=== PATIENT | female | born 1970 | race Caucasian/White ===

== ENCOUNTER 2017-08-12 15:26 | Emergency (ER) | payer OTHER, SELFPAY ==
[2017-08-12] MEDS ORDERED: Ondansetron HCl/PF 4 MG/2 ML Vial ONE (16:36)
[2017-08-12] MEDS ORDERED: Ketorolac Tromethamine 30 MG/ML VIAL ONE (16:36)
[2017-08-12 16:44] LABS: #Basophils 0.1 thou/uL (0.0-0.2); #Eosinphils 0.1 thou/uL (0.0-0.7); #Lymphocytes 1.5 thou/uL (1.20-3.40); #Monocytes 0.7 thou/uL (0.11-0.59); #Neutrophils 5.2 thou/uL (1.40-6.50); %Basophils 0.7 % (0.0-1.0); %Eosinophils 1.6 % (0.0-10.0); %Lymphocytes 20.1 % (21.0-51.0); Hematocrit 40.4 % (36.0-47.0); Mean Platelet Volume 7.5 fL (7.4-10.4); Red Blood Cell (RBC) Count 4.42 mill/uL (4.20-5.40); White Blood Cell (WBC) Count 7.5 thou/uL (4.8-10.8)
[2017-08-12 17:06] LABS: ALT (SGPT) 39 U/L (8-55); AST (SGOT) 42 U/L (5-34); Alkaline Phosphatase 98 U/L (40-150); Anion Gap 15 mmol/L (10-20); BUN (Urea Nitrogen) 10 mg/dL (7.0-18.7); Bilirubin, Total 0.4 mg/dL (0.2-1.2); Calc. Creatinine Clearance 0 mL/min (70-130); Carbon Dioxide 21 mmol/L (22-29); Chloride 108 mmol/L (98-107); Estimated GFR-MDRD 85; Globulin 2.9 g/dL (2.4-3.5); Protein, Total 6.9 g/dL (6.0-8.3)
== END 2017-08-12 21:04 | disposition home or self-care (01) ==
LOC: ERS 15:26
DX: G89.29 Other chronic pain (principal); M54.5 Low back pain; I10 Essential (primary) hypertension; J45.909 Unspecified asthma, uncomplicated; F17.210 Nicotine dependence, cigarettes, uncomplicated; Z79.899 Other long term (current) drug therapy
CPT/HCPCS: 80053; 84703; 85025; 85652; 86140; 96361; 96374; 96375; J1885; J2270; J2405

== ENCOUNTER 2017-10-26 13:24 | Emergency (ER) | payer BC, SELFPAY ==
[2017-10-26] MEDS ORDERED: Morphine 4 MG/ML VIAL ONE (14:30)
[2017-10-26] MEDS ORDERED: Morphine 2 mg/2ml in 0.9% NaCl PF SYRINGE ONE (14:31)
[2017-10-26] MEDS ORDERED: Ketorolac Tromethamine 30 MG/ML VIAL ONE (14:31)
[2017-10-26 14:49] LABS: #Eosinphils 0.2 thou/uL (0.0-0.7); #Lymphocytes 1.8 thou/uL (1.20-3.40); #Monocytes 0.4 thou/uL (0.11-0.59); #Neutrophils 4.9 thou/uL (1.40-6.50); %Basophils 0.5 % (0.0-1.0); %Eosinophils 2.3 % (0.0-10.0); %Lymphocytes 24.6 % (21.0-51.0); %Monocytes 5.7 % (0.0-10.0); Hematocrit 45.2 % (36.0-47.0); Mean Platelet Volume 7.8 fL (7.4-10.4); Red Blood Cell (RBC) Count 4.91 mill/uL (4.20-5.40); White Blood Cell (WBC) Count 7.2 thou/uL (4.8-10.8)
[2017-10-26 14:59] LABS: ALT (SGPT) 69 U/L (8-55); AST (SGOT) 43 U/L (5-34); Alkaline Phosphatase 105 U/L (40-150); Anion Gap 13 mmol/L (10-20); BUN (Urea Nitrogen) 11 mg/dL (7.0-18.7); Bilirubin, Total 0.3 mg/dL (0.2-1.2); CK (CPK) 262 U/L (29-168); Calc. Creatinine Clearance 0 mL/min (70-130); Calcium 9.3 mg/dL (7.8-10.44); Carbon Dioxide 21 mmol/L (22-29); Chloride 108 mmol/L (98-107); Estimated GFR-MDRD 88; Globulin 2.8 g/dL (2.4-3.5); Protein, Total 6.8 g/dL (6.0-8.3)
== END 2017-10-26 15:51 | disposition home or self-care (01) ==
LOC: ERS 13:24
DX: M54.2 Cervicalgia (principal); M54.5 Low back pain; I10 Essential (primary) hypertension; J45.909 Unspecified asthma, uncomplicated; E27.1 Primary adrenocortical insufficiency; F41.9 Anxiety disorder, unspecified; F17.210 Nicotine dependence, cigarettes, uncomplicated; Z79.899 Other long term (current) drug therapy
CPT/HCPCS: 80053; 82533; 82550; 85025; 96374; 96375; 99406; J1885; J2270

== ENCOUNTER 2017-12-27 14:29 | Emergency (ER) | payer BC ==
[2017-12-27 15:30] LABS: #Basophils 0.1 thou/uL (0.0-0.2); #Eosinphils 0.1 thou/uL (0.0-0.7); #Lymphocytes 1.9 thou/uL (1.20-3.40); #Monocytes 0.4 thou/uL (0.11-0.59); %Basophils 1.1 % (0.0-1.0); %Lymphocytes 24.7 % (21.0-51.0); %Monocytes 5.7 % (0.0-10.0); %Neutrophils 66.5 % (42.0-75.0); Hemoglobin 15.3 g/dL (12.0-16.0); Mean Corpuscular HGB CONC 32.7 g/dL (32.0-36.0); Mean Corpuscular Hemoglobin 30.3 pg (27.0-31.0); Mean Corpuscular Volume 92.9 fl (81.0-99.0); Mean Platelet Volume 7.7 fL (7.4-10.4); Platelet Count 219 thou/uL (130-400); RBC Distribution Width 12.7 % (11.5-14.5); Red Blood Cell (RBC) Count 5.03 mill/uL (4.20-5.40); White Blood Cell (WBC) Count 7.5 thou/uL (4.8-10.8)
[2017-12-27 15:52] LABS: ALT (SGPT) 35 U/L (8-55); AST (SGOT) 24 U/L (5-34); Albumin 4.1 g/dL (3.5-5.0); Alkaline Phosphatase 123 U/L (40-150); Anion Gap 11 mmol/L (10-20); BUN (Urea Nitrogen) 9 mg/dL (7.0-18.7); Bilirubin, Total 0.4 mg/dL (0.2-1.2); Calc. Creatinine Clearance 0 mL/min (70-130); Calcium 8.8 mg/dL (7.8-10.44); Carbon Dioxide 24 mmol/L (22-29); Chloride 105 mmol/L (98-107); Estimated GFR-MDRD 86; Globulin 2.8 g/dL (2.4-3.5); Glucose 93 mg/dL (70-105); Potassium 3.8 mmol/L (3.5-5.1); Protein, Total 6.9 g/dL (6.0-8.3); Sodium 136 mmol/L (136-145)
[2017-12-27 16:11] LABS: Bilirubin Negative (Negative); Blood, Urine Negative (Negative); Clarity CLEAR (Clear); Glucose, Urine (Dipstick) Negative (Negative); Leukocyte Negative (Negative); Nitrite Negative (Negative); Protein, Urine (Dipstick) Negative (Neg-Trace); Specific Gravity, Urine 1.023 (1.002-1.036); Urobilinogen 0.2 mg/dL (0.2-1.0)
[2017-12-27 16:13] LABS: Pregnancy Test - Urine (BHCG) Negative (Negative); Pregu Control Background? CLEAR/WHITE (CLR/WHITE); Pregu Control Bar Appear? YES (CONTROL BAR); Specific Gravity 1.023 (1.002-1.036)
[2017-12-27 16:20] LABS: Amphetamine Not Detected (NotDetected); Barbiturates Screen Not Detected (NotDetected); Benzodiazepine Screen Detected (NotDetected); Cocaine Metabolite Screen Not Detected (NotDetected); Medtox Control Line Valid? VALID (VALID); Medtox Reader # READER 4; Methadone Not Detected (NotDetected); Methamphetamine Not Detected (NotDetected); Opiate Screen Not Detected (NotDetected); Oxycodone Screen Not Detected (NotDetected); Phencyclidine (PCP) Not Detected (NotDetected); THC/Cannabinoid Screen Not Detected (NotDetected); Tricyclic Screen Not Detected (NotDetected)
[2017-12-27] MEDS ORDERED: Acetaminophen/Codeine 30-300mg Tablet ONE (16:54)
[2017-12-27] MEDS ORDERED: Ondansetron ODT 8 MG TAB ONE (16:55)
== END 2017-12-27 17:33 | disposition home or self-care (01) ==
LOC: ERS 14:29
DX: B34.9 Viral infection, unspecified (principal); E27.1 Primary adrenocortical insufficiency; I10 Essential (primary) hypertension; J45.909 Unspecified asthma, uncomplicated; F41.9 Anxiety disorder, unspecified; F17.210 Nicotine dependence, cigarettes, uncomplicated
CPT/HCPCS: 36415; 80053; 80306; 81003; 81025; 82533; 84146; 85025; 99284

== ENCOUNTER 2018-04-06 09:01 | Emergency (ER) | payer BC ==
[~2018-04-06 09:01] MED LIST: ISOVUE-370 76%-LOCM 1 ML ONE; Iopamidol 370 76% 50 ML VIAL FS ONE
[2018-04-06] MEDS ORDERED: Morphine 4 MG/ML VIAL ONE ×2 (10:07→11:37)
[2018-04-06] MEDS ORDERED: Ondansetron ODT 4 MG TAB ONE (10:07)
[2018-04-06 10:25] LABS: #Eosinphils 0.4 thou/uL (0.0-0.7); #Lymphocytes 1.5 thou/uL (1.20-3.40); #Monocytes 0.6 thou/uL (0.11-0.59); #Neutrophils 5.8 thou/uL (1.40-6.50); %Basophils 0.1 % (0.0-1.0); %Eosinophils 4.6 % (0.0-10.0); %Lymphocytes 17.6 % (21.0-51.0); %Monocytes 7.2 % (0.0-10.0); %Neutrophils 70.5 % (42.0-75.0); Hemoglobin 12.8 g/dL (12.0-16.0); Mean Corpuscular HGB CONC 33.7 g/dL (32.0-36.0); Mean Corpuscular Hemoglobin 30.9 pg (27.0-31.0); Mean Corpuscular Volume 91.4 fl (81.0-99.0); Mean Platelet Volume 7.2 fL (7.4-10.4); Platelet Count 315 thou/uL (130-400); RBC Distribution Width 12.1 % (11.5-14.5); Red Blood Cell (RBC) Count 4.15 mill/uL (4.20-5.40); White Blood Cell (WBC) Count 8.3 thou/uL (4.8-10.8)
[2018-04-06 10:32] LABS: Bilirubin Negative (Negative); Blood, Urine Moderate (Negative); Clarity CLEAR (Clear); Glucose, Urine (Dipstick) Negative (Negative); Leukocyte Small (Negative); Nitrite Negative (Negative); Protein, Urine (Dipstick) Negative (Neg-Trace); Specific Gravity, Urine 1.022 (1.002-1.036); Urobilinogen 0.2 mg/dL (0.2-1.0); pH, Urine 5.5 (5.0-9.0)
[2018-04-06 10:35] LABS: Bacteria/HPF None Seen HPF (None Seen); Hyaline Casts/LPF 0-3 HYALINE CAST LPF (0-3 Hyaline); Pathc Cast-AUWi Flag 0.43 (0-2.49); Squamous Epithelial 0-3 HPF (0-3)
[2018-04-06 10:52] LABS: ALT (SGPT) 36 U/L (8-55); AST (SGOT) 19 U/L (5-34); Albumin 3.7 g/dL (3.5-5.0); Alkaline Phosphatase 111 U/L (40-150); Anion Gap 12 mmol/L (10-20); BUN (Urea Nitrogen) 13 mg/dL (7.0-18.7); Bilirubin, Total 0.2 mg/dL (0.2-1.2); Calc. Creatinine Clearance 0 mL/min (70-130); Calcium 9.1 mg/dL (7.8-10.44); Carbon Dioxide 23 mmol/L (22-29); Chloride 105 mmol/L (98-107); Estimated GFR-MDRD 88; Globulin 3.7 g/dL (2.4-3.5); Glucose 102 mg/dL (70-105); Lipase 25 U/L (8-78); Potassium 4.3 mmol/L (3.5-5.1); Protein, Total 7.4 g/dL (6.0-8.3); Sodium 136 mmol/L (136-145)
--- NOTE | 2018-04-06 12:36 | CT ---
CONTRAST ENHANCED CT IMAGES OF THE ABDOMEN AND PELVIS: History: Patient with abdominal pain. Comparison: 06-01-17 FINDINGS: IV and oral contrast was given. CT images demonstrate the lung bases to be unremarkable. No evidence of free intraperitoneal air seen . The liver and spleen are unremarkable. The gallbladder has been surgically removed. The pancreas is u nremarkable. Right adrenal gland unremarkable. The left adrenal gland remains enlarged, most compatib le with a left adrenal lesion compatible with likely adenoma, not significantly changed since the pre vious exam. The kidneys are unremarkable with no evidence of hydronephrosis or masses. The abdominal aorta contai ns some small areas of calcifications. Minimal periaortic lymph adenopathy is seen. The small bowel loops are unremarkable. A normal appendix is seen. There is some inflammatory change since in the pelvis compatible with edna ent's recent surgery. The urinary bladder is abnormally thickened concerning for cystitis. No significant amount of gas is seen within it. The colon and small bowel are unremarkable. No definite evidence of obvious pelvic abscess is seen. IMPRESSION: 1. Post-surgical changes seen in the pelvis. 2. Abnormal thickening of the urinary bladder, compatible with cystitis. 3. Findings called to Dr. Winslow at 12:14 p.m. on 04-06-18. POS: [facility]
[2018-04-06] MEDS ORDERED: Sodium Chloride 0.9% 100 ML ONE (13:01)
[2018-04-06] MEDS ORDERED: cefTRIAXone\\ROCEPHIN 1 GM VIAL ONE (13:01)
[2018-04-06] MEDS ORDERED: HYDROcodone/Acetaminophen 5/325 mg Tablet ONE (13:57)
== END 2018-04-06 14:01 | disposition home or self-care (01) ==
LOC: ERS 09:01
DX: N39.0 Urinary tract infection, site not specified (principal); E27.1 Primary adrenocortical insufficiency; I10 Essential (primary) hypertension; J45.909 Unspecified asthma, uncomplicated; F41.9 Anxiety disorder, unspecified; F17.210 Nicotine dependence, cigarettes, uncomplicated
CPT/HCPCS: 74177; 80053; 81003; 81015; 83605; 83690; 85025; 87086; 96361; 96365; 96375; 96376; J0696; J2270; J7050; Q0162

== ENCOUNTER 2018-06-22 16:24 | Emergency (ER) | payer BC ==
[2018-06-22 17:04] LABS: #Eosinphils 0.2 thou/uL (0.0-0.7); #Lymphocytes 2.5 thou/uL (1.20-3.40); #Monocytes 0.4 thou/uL (0.11-0.59); #Neutrophils 3.7 thou/uL (1.40-6.50); %Basophils 0.2 % (0.0-1.0); %Eosinophils 2.4 % (0.0-10.0); %Lymphocytes 37.1 % (21.0-51.0); %Monocytes 5.5 % (0.0-10.0); %Neutrophils 54.8 % (42.0-75.0); Hemoglobin 14.5 g/dL (12.0-16.0); Mean Corpuscular Hemoglobin 31.2 pg (27.0-31.0); Mean Corpuscular Volume 89.2 fL (78.0-98.0); Mean Platelet Volume 7.5 fL (7.4-10.4); Platelet Count 195 thou/uL (130-400); RBC Distribution Width 12.5 % (11.5-14.5); Red Blood Cell (RBC) Count 4.65 mill/uL (4.20-5.40); White Blood Cell (WBC) Count 6.8 thou/uL (4.8-10.8)
[2018-06-22 17:29] LABS: ALT (SGPT) 47 U/L (8-55); AST (SGOT) 34 U/L (5-34); Albumin 4.3 g/dL (3.5-5.0); Alkaline Phosphatase 110 U/L (40-150); Anion Gap 16 mmol/L (10-20); BUN (Urea Nitrogen) 15 mg/dL (7.0-18.7); Bilirubin, Total 0.2 mg/dL (0.2-1.2); Calc. Creatinine Clearance 0 mL/min (70-130); Calcium 9.2 mg/dL (7.8-10.44); Carbon Dioxide 20 mmol/L (22-29); Chloride 108 mmol/L (98-107); Estimated GFR-MDRD 71; Globulin 2.7 g/dL (2.4-3.5); Glucose 153 mg/dL (70-105); Potassium 3.6 mmol/L (3.5-5.1); Sodium 140 mmol/L (136-145)
[2018-06-22 17:37] LABS: Acetaminophen Less than 6.0 mcg/mL (10.0-30.0); Alcohol Less than 10 mg/dL (Less than 10); Salicylate Less than 8.0 mg/dL (15.0-30.0)
[2018-06-22 17:37] LABS: Bilirubin Negative (Negative); Blood, Urine Negative (Negative); Clarity CLEAR (Clear); Glucose, Urine (Dipstick) Negative (Negative); Leukocyte Negative (Negative); Nitrite Negative (Negative); Protein, Urine (Dipstick) Negative (Neg-Trace); Specific Gravity, Urine 1.025 (1.002-1.036); Urobilinogen 0.2 mg/dL (0.2-1.0)
[2018-06-22 17:40] LABS: Pregnancy Test - Urine (BHCG) Negative (Negative); Pregu Control Background? CLEAR/WHITE (CLR/WHITE); Pregu Control Bar Appear? YES (CONTROL BAR); Specific Gravity 1.025 (1.002-1.036)
[2018-06-22 17:42] LABS: CKMB 4.4 ng/mL (0-6.6); Troponin I Less than 0.010 ng/mL (< 0.028)
[2018-06-22 17:51] LABS: Amphetamine Not Detected (NotDetected); Barbiturates Screen Detected (NotDetected); Benzodiazepine Screen Detected (NotDetected); Cocaine Metabolite Screen Not Detected (NotDetected); Medtox Reader # READER 1; Methadone Not Detected (NotDetected); Methamphetamine Not Detected (NotDetected); Opiate Screen Not Detected (NotDetected); Phencyclidine (PCP) Not Detected (NotDetected); THC/Cannabinoid Screen Not Detected (NotDetected); Tricyclic Screen Not Detected (NotDetected)
[2018-06-22 17:52] LABS: Medtox Control Line Valid? VALID (VALID); Oxycodone Screen Not Detected (NotDetected)
--- NOTE | 2018-06-22 18:27 | RAD ---
CHEST 1 VIEW: Date: 06/22/18 HISTORY: Seizure. Dyspnea. COMPARISON: 02/04/17. FINDINGS: Cardiac silhouette is magnified by projection. Pulmonary vasculature upper limits of normal. Mediasti num midline. No lobar consolidation or evidence of pneumothorax. cafeteria monitor leads overlie the ch est. IMPRESSION: No active cardiopulmonary abnormalities are demonstrated. POS: [facility]
--- NOTE | 2018-06-22 18:45 | CT ---
CT OF THE BRAIN WITHOUT CONTRAST: Date: 06/22/18 INDICATION: History of seizure. COMPARISON: Prior exam dated 01/11/16. FINDINGS: No acute infarct, hemorrhage, or hydrocephalus is present. Septum pellucidum and third ventricle are midline. The skull and extracranial soft tissues appear within normal limits. IMPRESSION: No acute intracranial abnormality demonstrated. POS: [facility]
== END 2018-06-22 19:15 | disposition home or self-care (01) ==
LOC: ERS 16:24
DX: R56.9 Unspecified convulsions (principal); M79.1 Myalgia; E27.1 Primary adrenocortical insufficiency; K22.0 Achalasia of cardia; G61.0 Guillain-Barre syndrome; F41.9 Anxiety disorder, unspecified; I10 Essential (primary) hypertension; F17.210 Nicotine dependence, cigarettes, uncomplicated; J45.909 Unspecified asthma, uncomplicated; Z79.899 Other long term (current) drug therapy
CPT/HCPCS: 36415; 70450; 71045; 80053; 80306; 80307; 81003; 81025; 82553; 84146; 84443; 84484; 85025; 93005; 96360; 96374

== ENCOUNTER 2018-10-18 15:13 | Emergency (ER) | payer BC ==
--- NOTE | 2018-10-18 15:55 | RAD ---
CHEST TWO VIEWS: INDICATIONS: Cough. FINDINGS: No consolidation, pleural effusion, or pneumothorax is evident. Heart size is normal. No acute osseous abnormality is evident. IMPRESSION: No acute cardiopulmonary abnormalities. POS: [facility]
[2018-10-18] MEDS ORDERED: Acetaminophen 500 MG TAB ONE (16:57)
[2018-10-18] MEDS ORDERED: predniSONE 20 MG TAB ONE (17:06)
[2018-10-18] MEDS ORDERED: Doxycycline 100 MG CAP PO SCH (17:15)
[2018-10-18 17:53] LABS: #Basophils 0.1 thou/uL (0.0-0.2); #Eosinphils 0.1 thou/uL (0.0-0.7); #Monocytes 0.5 thou/uL (0.11-0.59); #Neutrophils 4.4 thou/uL (1.40-6.50); %Eosinophils 1.7 % (0.0-10.0); %Lymphocytes 36.7 % (21.0-51.0); %Neutrophils 54.6 % (42.0-75.0); Hemoglobin 15.2 g/dL (12.0-16.0); Mean Corpuscular HGB CONC 33.9 g/dL (32.0-36.0); Mean Corpuscular Hemoglobin 29.7 pg (27.0-31.0); Mean Corpuscular Volume 87.8 fL (78.0-98.0); Mean Platelet Volume 7.8 fL (7.4-10.4); Platelet Count 203 thou/uL (130-400); RBC Distribution Width 12.2 % (11.5-14.5); Red Blood Cell (RBC) Count 5.12 mill/uL (4.20-5.40); White Blood Cell (WBC) Count 8.1 thou/uL (4.8-10.8)
[2018-10-18 18:03] LABS: ALT (SGPT) 53 U/L (8-55); AST (SGOT) 44 U/L (5-34); Albumin 4.3 g/dL (3.5-5.0); Alkaline Phosphatase 125 U/L (40-150); Anion Gap 17 mmol/L (10-20); BUN (Urea Nitrogen) 13 mg/dL (7.0-18.7); Bilirubin, Total 0.3 mg/dL (0.2-1.2); Calc. Creatinine Clearance 0 mL/min (70-130); Calcium 9.6 mg/dL (7.8-10.44); Carbon Dioxide 19 mmol/L (22-29); Chloride 108 mmol/L (98-107); Estimated GFR-MDRD 72; Globulin 3.3 g/dL (2.4-3.5); Glucose 106 mg/dL (70-105); Protein, Total 7.6 g/dL (6.0-8.3); Sodium 140 mmol/L (136-145)
[2018-10-18 18:07] LABS: Troponin I Less than 0.010 ng/mL (< 0.028)
[2018-10-18] MEDS ORDERED: Ketorolac Tromethamine 30 MG/ML VIAL ONE (18:59)
== END 2018-10-18 19:50 | disposition home or self-care (01) ==
LOC: ERS 15:13
DX: J44.1 Chronic obstructive pulmonary disease with (acute) exacerbation (principal); E27.1 Primary adrenocortical insufficiency; I10 Essential (primary) hypertension; J45.909 Unspecified asthma, uncomplicated; F41.9 Anxiety disorder, unspecified; F17.210 Nicotine dependence, cigarettes, uncomplicated; Z79.899 Other long term (current) drug therapy
CPT/HCPCS: 36415; 71046; 80053; 84484; 85025; 85379; 93005; 96360; 96361; J1885; J7506; J7620

== ENCOUNTER 2018-12-28 16:31 | Observation (INO) | payer BC ==
[~2018-12-28 16:31] MED LIST changes: -Iopamidol 370 76% 50 ML VIAL FS ONE
[2018-12-28 17:25] LABS: #Eosinphils 0.2 thou/uL (0.0-0.7); #Monocytes 0.4 thou/uL (0.11-0.59); #Neutrophils 3.7 thou/uL (1.40-6.50); %Basophils 0.2 % (0.0-1.0); %Eosinophils 2.9 % (0.0-10.0); %Lymphocytes 32.2 % (21.0-51.0); %Monocytes 5.7 % (0.0-10.0); Hemoglobin 15.2 g/dL (12.0-16.0); Mean Corpuscular HGB CONC 33.1 g/dL (32.0-36.0); Mean Corpuscular Hemoglobin 30.1 pg (27.0-31.0); Mean Corpuscular Volume 90.8 fL (78.0-98.0); Mean Platelet Volume 8.1 fL (7.4-10.4); Platelet Count 192 thou/uL (130-400); RBC Distribution Width 12.1 % (11.5-14.5); Red Blood Cell (RBC) Count 5.05 mill/uL (4.20-5.40); White Blood Cell (WBC) Count 6.3 thou/uL (4.8-10.8)
[2018-12-28 17:53] LABS: ALT (SGPT) 70 U/L (8-55); AST (SGOT) 56 U/L (5-34); Albumin 4.4 g/dL (3.5-5.0); Alkaline Phosphatase 129 U/L (40-150); Anion Gap 12 mmol/L (10-20); BUN (Urea Nitrogen) 12 mg/dL (7.0-18.7); Bilirubin, Total 0.4 mg/dL (0.2-1.2); Calc. Creatinine Clearance 0 mL/min (70-130); Calcium 9.8 mg/dL (7.8-10.44); Carbon Dioxide 23 mmol/L (22-29); Chloride 106 mmol/L (98-107); Estimated GFR-MDRD 77; Globulin 2.7 g/dL (2.4-3.5); Glucose 108 mg/dL (70-105); Lipase 31 U/L (8-78); Potassium 4.2 mmol/L (3.5-5.1); Protein, Total 7.1 g/dL (6.0-8.3); Sodium 137 mmol/L (136-145)
[2018-12-28] MEDS ORDERED: Ondansetron PF 4 MG/2 ML Vial ONE (19:54)
[2018-12-28 20:00] LABS: Bilirubin Negative (Negative); Blood, Urine Trace (Negative); Clarity CLOUDY (Clear); Glucose, Urine (Dipstick) Negative (Negative); Leukocyte Negative (Negative); Nitrite Negative (Negative); Protein, Urine (Dipstick) Negative (Neg-Trace); Specific Gravity, Urine 1.024 (1.002-1.036); Urobilinogen 0.2 mg/dL (0.2-1.0); pH, Urine 5.5 (5.0-9.0)
[2018-12-28 20:02] LABS: Pregnancy Test - Urine (BHCG) Negative (Negative); Pregu Control Background? CLEAR/WHITE (CLR/WHITE); Pregu Control Bar Appear? YES (CONTROL BAR); Specific Gravity 1.024 (1.002-1.036)
[2018-12-28 20:03] LABS: Bacteria/HPF Rare-Few HPF (None Seen)
[2018-12-28 20:05] LABS: Pathc Cast-AUWi Flag 3.77 (0-2.49); Yeast-AUWi Flag 35.7 (0-25.0)
[2018-12-28 20:18] LABS: Hyaline Casts/LPF 0-3 HYALINE CAST LPF (0-3 Hyaline); Other Casts/LPF None Seen LPF (0-3 Hyaline)
[2018-12-28] MEDS ORDERED: Morphine 4 MG/ML VIAL ONE ×2 (20:23→21:26)
--- NOTE | 2018-12-28 21:30 | CT ---
CT ABDOMEN AND PELVIS PERFORMED WITH CONTRAST ENHANCEMENT: HISTORY: Abdominal pain. FINDINGS: ABDOMEN: The lung bases are clear. There are diffuse fatty changes of the liver, which measures 19.5 cm in length. The spleen is within normal limits. The pancreas shows no mass or ductal dilatation. The gallbladder has been removed. The right adrenal gland is normal in appearance. There is a stable appearance to an approximately 3. 7 cm left adrenal mass, possibly an adenoma, although CT numbers are not definitive. Right and left kidneys are normal in size. The right kidney is malrotated. No obstruction. No significant periaor tic or mesenteric adenopathy. There is a tiny ventral hernia of the anterior abdominal wall, directl y in the midline, above the level of the umbilicus. This is approximately 5 to 6 cm above the level of the umbilicus. PELVIS: The appendix region appears unremarkable, with a normal caliber, air-filled appendix. No ad enopathy, mass, or free fluid. IMPRESSION: 1. Diffuse fatty changes of the liver, which is borderline enlarged. 2. Postoperative cholecystectomy change. 3. Stable left adrenal mass. 4. Tiny fat-containing midline ventral wall hernia. POS: [facility]
[2018-12-28] MEDS ORDERED: Pantoprazole 40 MG VIAL ONE (22:04)
[2018-12-28] MEDS ORDERED: Lidocaine Viscous Sol 2% 15 ml UD Cup ONE (22:04)
[2018-12-28] MEDS ORDERED: Mag-Al 1200 mg/1200 mg/30 ML UDCUP ONE (22:04)
[2018-12-28] MEDS ORDERED: Milk Of Magnesia 30 ML UDCUP ONE (22:06)
[2018-12-28] MEDS ORDERED: Ondansetron ODT 4 MG TAB SL PRN (23:01)
[2018-12-28] MEDS ORDERED: Ondansetron PF 4 MG/2 ML Vial IVP PRN (23:01)
[2018-12-28 23:11] VITALS: BMI 39.6
[2018-12-28] MEDS: D5 1/2 NS w/20 mEq KCL 1,000 ML IV SCH (23:51)
[2018-12-28] MEDS: Morphine 4 MG/ML VIAL SLOW IVP PRN (23:51)
[2018-12-29] MEDS: Morphine 4 MG/ML VIAL SLOW IVP PRN ×5 (04:41→21:20)
[2018-12-29] MEDS: D5 1/2 NS w/20 mEq KCL 1,000 ML IV SCH (08:16)
[2018-12-29] MEDS ORDERED: Acetaminophen 325 MG TAB PO PRN (12:02)
[2018-12-29] MEDS ORDERED: Ondansetron PF 4 MG/2 ML Vial IVP PRN (12:02)
[2018-12-29] MEDS ORDERED: Pantoprazole 40 MG VIAL IVP SCH ×2 (12:03→12:30)
[2018-12-29] MEDS ORDERED: clonazePAM 0.5 MG TAB PO PRN (12:05)
[2018-12-29 12:13] LABS: ALT (SGPT) 87 U/L (8-55); AST (SGOT) 78 U/L (5-34); Albumin 3.8 g/dL (3.5-5.0); Alkaline Phosphatase 128 U/L (40-150); Bilirubin, Direct 0.1 mg/dL (0.1-0.3); Bilirubin, Total 0.4 mg/dL (0.2-1.2); Protein, Total 6.3 g/dL (6.0-8.3)
[2018-12-29] MEDS ORDERED: Hydrocortisone Sod Succ/PF 100 mg/2 ml Vial IVP SCH ×3 (12:15→12:30)
[2018-12-29] MEDS ORDERED: Sodium Chloride 0.9% (PF) 10 ML VIAL FS PRN (12:26)
[2018-12-29] MEDS: Dextrose 5 % And 0.9 % NaCl 1,000 ML IV SCH ×2 (14:11→23:14)
[2018-12-29] MEDS ORDERED: Polyethylene Glycol 3350 17 GM Packet PO SCH (18:45)
[2018-12-29] MEDS ORDERED: Fleet Enema 133 ML BOT FS SCH (18:45)
[2018-12-29] MEDS: Hydrocortisone Sod Succ/PF 100 mg/2 ml Vial IVP SCH (19:59)
[2018-12-29] MEDS: Pantoprazole 40 MG VIAL IVP SCH (20:01)
--- NOTE | 2018-12-29 21:40 | HP ---
CHIEF COMPLAINT: Abdominal pain, nausea, and vomiting. HISTORY OF PRESENT ILLNESS: The patient is a very pleasant 48-year-old female with past medical history of Karnak's disease, on steroids, also has a history of achalasia, also asthma, who presented to the hospital with abdominal pain, nausea, vomiting. The patient stated that she underwent a myotomy back about 1-1/2 year ago. The patient stated that about 4 weeks ago, she started becoming very constipated. Normally, she has normal bowel movements about every day or every other day. The patient at that time was not taking any narcotic medications. The patient then went ahead and took a bottle of magnesium citrate and she had a bowel movement. The patient then went back to her regular diet; however, 6 days later, she was still unable to have another bowel movement, so she took another bottle of magnesium citrate. The patient has been doing on and off for the past 4 weeks. She has taken about 4 or 5 bottles of magnesium citrate for her bowels. The patient states that she came in today because she started having abdominal pain which started about 48 hours ago and also nausea and vomiting. The patient stated that her abdominal pain was of intermittent and also would worsen whenever she would eat. She was able to keep things down; however, she would have intense pain whenever she would eat food. The patient stated that she brought up only just some clear liquids or clear phlegm. No food products were vomited out. The patient denies any fevers or chills. She denies running out of her Solu-Cortef medications. The patient does state that for the past couple of days, she is unable to take that because of the significant abdominal pain, and nausea and vomiting. She came into the ER for further evaluation. PAST MEDICAL HISTORY: She has a history of achalasia. She had banding back in 2017, recent surgery about 1-1/2 year ago. She also has a history of hypertension. 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 Asthma. PAST SURGICAL HISTORY: She has had a myotomy about 1-1/2 year ago. She has had a hysterectomy and has had x2. She also had a left fallopian tube removed, also had esophageal dilation 4 times. Surgical history of cholecystectomy, also had oophorectomy and hand surgery. She also has Black fundoplication in 02/2017. The patient also has had a spinal decompression and neck fusion. SOCIAL HISTORY: She denies any alcohol use, drug use. Has a history of smoking half a pack a day. She lives at home. She is currently at full code and lives with her . FAMILY HISTORY: The patient is adopted. ALLERGIES: SHE IS ALLERGIC TO ASPIRIN, CIPROFLOXACIN, CODEINE, PENICILLIN, AND TRAMADOL. MEDICATIONS: She takes hydrocortisone 20 mg in the morning and 10 in the afternoon, clonazepam 0.25 in the morning. She is also on albuterol as needed and she is on Talwin 50 mg oral. REVIEW OF SYSTEMS: All negative except for the ones mentioned above in the HPI. PHYSICAL EXAMINATION: VITAL SIGNS: Are as of the following; her temperature is 97.9, pulse 70, respirations 18, O2 saturation 94% on room air, and blood pressure 151/93. GENERAL: She is awake, alert, and oriented x3. Does not appear in distress. CV: S1, S2 present. No murmurs, rubs, or gallops. ABDOMEN: Mildly distended. Bowel sounds are hypoactive. Pain upon palpation to her epigastric area, also around her right upper quadrant and left upper quadrant, above the umbilical cord is where her pain is. She does have a small ventral hernia that is located above her umbilical area. LUNGS: Clear to auscultation. No rhonchi or wheezes noted. EXTREMITIES: Lower extremity, no edema. Pedal pulses are present x2. NEUROVASCULAR: There was no focal deficits noted. SKIN: No cuts, lesions, or bruises noted. HEENT: Normocephalic, atraumatic. No lymphadenopathy noted. Pupils are equal and reactive to light. LABORATORY RESULTS: As of the following; WBCs of 6.3, hemoglobin of 5.2, hematocrit of 45.9, and platelets of 192. Chemistry; sodium of 137, potassium of 4.2, BUN of 12, and creatinine 0.80. AST is 56, ALT is 70, and alkaline phosphatase is 129. Cortisol level is 250. TSH is 4.0. Lipase is 31. She also did have a CT of abdomen and pelvis, which indicated diffuse fatty changes in her liver, postoperative cholecystectomy changes, stable left adrenal mass, tiny fat containing midline ventral wall hernia. ASSESSMENT AND PLAN: The patient is a very pleasant 48-year-old female who presents to the hospital with abdominal pain. 1. Abdominal pain. Differential could potentially includes possible peptic ulcer disease versus Karnak's crisis versus pancreatitis. The patient's lipase is completely normal. We will check a cortisol level on this patient. We will put her on hydrocortisone 50 mg b.i.d. for now. The patient's abdomen is significantly distended and she does have significant pain on palpation. We will also put her on some Protonix b.i.d. I have consulted GI for further evaluation. I am not sure if the possibility of Heller myotomy procedure could be causing the patient to have her current symptoms. 2. Nausea. We will start the patient on some Zofran p.r.n. The patient has had status post Black fundoplication. We will keep her n.p.o. for now. I will continue her IV hydration. 3. Elevated LFTs. I will check a hepatitis panel on this patient. She does have some fatty liver changes on the CAT scan. We may also consider getting a right upper quadrant ultrasound. 4. Deep venous thrombosis prophylaxis. We will put the patient on sequential compression devices and subcu heparin. Job ID: [id number]
[2018-12-30] MEDS: Morphine 4 MG/ML VIAL SLOW IVP PRN ×3 (02:19→13:12)
--- NOTE | 2018-12-30 02:21 | CON ---
DATE OF CONSULTATION: 12/29/2018 REASON FOR CONSULTATION: Nausea, vomiting, and abdominal pain. CONSULTING PHYSICIAN: Dr. Milena Allred. HISTORY OF PRESENT ILLNESS: The patient is a 48-year-old female with past medical history of seizure disorder, Woodruff's disease, hypertension, asthma, Guillain-[place], and achalasia, status post Heller myotomy, presenting with abdominal pain, nausea, and vomiting. She states that over the last 3 weeks, she had been having intermittent bouts of constipation characterized as having one solid bowel movement every 5 to 7 days that would require increased straining and abdominal pressure in order to facilitate defecation. She would intermittently take laxatives every 2 to 3 days in order to facilitate having a bowel movement and when she did have a bowel movement, it would consist of again a hard to pass solid component followed by a small amount of liquid. However, approximately 2 days ago, she had significant increase in abdominal distention that was associated with increased abdominal pain. The pain was located primarily in the left upper quadrant mid and right upper quadrant and characterized as a constant throbbing type sensation, nonradiating from the upper abdominal quadrants and would reach a severity of approximately 8/10. The pain was worse with eating either solid or liquid food and did not have any clear exacerbating factors. This was associated with again increased abdominal distention, anorexia, nausea, and vomiting over the course of 24 hours with 6 episodes of emesis during that time as well as whole-body diaphoresis with these episodes of emesis and/or having a bowel movement in the past. With this increase in abdominal pain, I prompted her to seek healthcare assistance in the [place] ER, where in the ER, she did have intractable abdominal pain that was not amenable to more conservative measures and ultimately admitted to the hospital for further evaluation. Today, she states her nausea and vomiting is better when compared to previous, but she continues to have the upper abdominal pain and she has not had a bowel movement since being seen in the ER on admission. Per nursing staff, she has required a fair amount of narcotic medications and had been taking narcotics as an outpatient prior to admission. Currently, denies any fevers, chills, GI bleeding, dysphagia, odynophagia, or weight loss. Of note, she has not had any symptoms of dysphagia since her Heller myotomy approximately 1-1/2 years ago. REVIEW OF SYSTEMS: A 10-category review of systems was obtained with all responses negative except for the pertinent positives as listed in HPI. PAST MEDICAL HISTORY: As per HPI. PAST SURGICAL HISTORY: Hysterectomy, x2, lung biopsy, multiple EGDs with dilation, cholecystectomy, oophorectomy of the left ovary, and excision of the left fallopian tube, Heller myotomy with Black fundoplication, and spinal decompression and neck fusion. FAMILY HISTORY: Unknown as she was adopted. SOCIAL HISTORY: Denies any tobacco or illicit drug use. Smokes approximately 1/2 pack per day. OUTPATIENT MEDICATIONS: Reviewed. ALLERGIES: ASPIRIN, CIPROFLOXACIN, CODEINE, PENICILLIN, AND TRAMADOL. PHYSICAL EXAMINATION: VITAL SIGNS: Temperature 98.5, pulse 75, blood pressure 159/91, respiratory rate 18, and saturating 97% on room air. GENERAL: The patient was lying in bed, in mild distress. Alert and oriented x4. HEENT: Neck is supple. No JVD or scleral icterus noted. Normocephalic, atraumatic. CARDIOVASCULAR: Regular rate and rhythm with no discernible murmurs, gallops, or rubs. RESPIRATORY: Clear to auscultation bilaterally with no discernible wheezes or rales. ABDOMEN: Hypoactive bowel sounds, mildly tense to palpation. [id number] abdominal distention and tenderness to palpation in the left upper quadrant, midepigastric, right upper quadrant, and periumbilical regions. EXTREMITIES: No cyanosis, clubbing, or edema. LABORATORY DATA: CBC with a white blood cell count of 6.3, hemoglobin 15.2, hematocrit 45.9, and platelets 192. Chemistry with a sodium of 137, potassium 4.2, chloride 106, CO2 of 23, BUN 12, creatinine 0.8, and glucose 108. AST 78, ALT 87, alkaline phosphatase 128, and total bilirubin 0.4. Cortisol 2.5. IMAGING DATA: CT of the abdomen and pelvis obtained on 12/28/2018 showed borderline hepatomegaly with fatty changes associated in the liver. Surgical change also associated with cholecystectomy was seen. There is also a 3.7 cm left adrenal mass that is stable when compared to prior imaging and a tiny fat containing ventral hernia with no other additional abnormality seen. ASSESSMENT AND PLAN: The patient is a 48-year-old female with past medical history of seizure disorder, Woodruff's disease, hypertension, asthma, Guillain-[place] syndrome, and achalasia, presenting with increased abdominal pain, nausea, and vomiting associated with constipation or possible adrenal insufficiency. Abdominal pain/nausea/vomiting: The patient is presenting with a fairly acute onset of increased upper abdominal pain characterized as a constant throbbing type sensation that is located in the right upper quadrant, epigastric, and left upper quadrant. This started approximately 2 days ago. This was associated with increased abdominal distention, nausea and vomiting with approximately 6 episodes of emesis over the last 24 hours. This is also associated with significant constipation with the patient has had one solid bowel movement every 5 to 7 days over the last 3 to 4 weeks. At this time, the CT scan did not show any significant intraabdominal abnormalities except for a 3.7 cm left adrenal mass that is stable when compared to previous. Upon review of the CT scan myself, there is a significant amount of retained solid stool within the colon consistent with constipation and could be potentially contributing to her current clinical picture. However, with her history of Woodruff's disease and a low cortisol on admission, adrenal insufficiency is also within the differential causing her abdominal pain, nausea, and vomiting. At this point, I would necessarily characterize this as adrenal crisis, but giving her stress dose steroids may be prudent. Differential could also include constipation, adrenal insufficiency, small bowel or colonic ileus, GERD, median arcuate ligament syndrome (much less likely), and/or possible GI neoplasm (much less likely). RECOMMENDATIONS: 1. We would place the patient on oral laxative administration with MiraLAX 1 capsule b.i.d. to facilitate having a bowel movement. I would also add Fleet enemas x2, first one tonight to facilitate the passage of any solid stool plug within the distal colon that may be preventing the patient from having a bowel movement. 2. We would place the patient on Naloxegol 12.5 mg daily to help reverse the effects of the narcotics on the gut and again to facilitate having a bowel movement. 3. I agree with placing the patient on hydrocortisone IV as part of stress dose steroids for adrenal insufficiency. 4. Agree with aggressive antiemetic control with Zofran. If the patient is still continued to have increased nausea and vomiting, I would schedule this particular medication and would have decent affect when coupled with glucocorticoids (hydrocortisone). 5. We would hold on placement of any NG tube for right now given the lower likelihood of a small bowel or colonic ileus. We will continue to follow. Please call with any questions. Job ID: [id number]
[2018-12-30] MEDS ORDERED: Fleet Enema 133 ML BOT FS PRN ×2 (06:00→12:16)
[2018-12-30 07:21] LABS: #Eosinphils 0.1 thou/uL (0.0-0.7); #Lymphocytes 2.1 thou/uL (1.20-3.40); #Monocytes 0.4 thou/uL (0.11-0.59); #Neutrophils 3.2 thou/uL (1.40-6.50); %Basophils 0.4 % (0.0-1.0); %Eosinophils 1.9 % (0.0-10.0); %Lymphocytes 36.1 % (21.0-51.0); %Monocytes 6.7 % (0.0-10.0); %Neutrophils 54.9 % (42.0-75.0); Hemoglobin 12.7 g/dL (12.0-16.0); Mean Corpuscular HGB CONC 32.7 g/dL (32.0-36.0); Mean Corpuscular Hemoglobin 29.8 pg (27.0-31.0); Mean Corpuscular Volume 90.9 fL (78.0-98.0); Platelet Count 181 thou/uL (130-400); RBC Distribution Width 11.9 % (11.5-14.5); Red Blood Cell (RBC) Count 4.26 mill/uL (4.20-5.40); White Blood Cell (WBC) Count 5.8 thou/uL (4.8-10.8)
[2018-12-30 07:32] LABS: ALT (SGPT) 81 U/L (8-55); AST (SGOT) 54 U/L (5-34); Albumin 3.8 g/dL (3.5-5.0); Alkaline Phosphatase 121 U/L (40-150); Anion Gap 11 mmol/L (10-20); BUN (Urea Nitrogen) 7 mg/dL (7.0-18.7); Bilirubin, Total 0.3 mg/dL (0.2-1.2); Calc. Creatinine Clearance 135 mL/min (70-130); Calcium 8.8 mg/dL (7.8-10.44); Carbon Dioxide 24 mmol/L (22-29); Chloride 109 mmol/L (98-107); Estimated GFR-MDRD 80; Globulin 2.1 g/dL (2.4-3.5); Glucose 114 mg/dL (70-105); Potassium 3.8 mmol/L (3.5-5.1); Protein, Total 5.9 g/dL (6.0-8.3); Sodium 140 mmol/L (136-145)
[2018-12-30] MEDS: Dextrose 5 % And 0.9 % NaCl 1,000 ML IV SCH (07:57)
[2018-12-30] MEDS: Pantoprazole 40 MG VIAL IVP SCH (07:59)
[2018-12-30] MEDS: Polyethylene Glycol 3350 17 GM Packet PO SCH ×2 (07:59→21:23)
[2018-12-30] MEDS: Hydrocortisone Sod Succ/PF 100 mg/2 ml Vial IVP SCH ×2 (08:01→21:19)
--- NOTE | 2018-12-30 15:14 | PRG ---
DATE OF SERVICE: 12/30/2018 SUBJECTIVE: Ms. Winter says she is feeling a lot better today than yesterday. She received Fleet Enema and was started on MiraLAX. She says she has had 6 or 7 bowel movements so far today, and her abdominal distention has improved. Nausea has resolved. She was able to eat regular diet this afternoon and that stayed down just fine with no nausea. She still has some upper abdominal discomfort, but this is a lot better. OBJECTIVE: VITAL SIGNS: Temperature 98.1, pulse 60, blood pressure 122/84, 98% oxygen saturation on room air. GENERAL: No acute distress. HEART: Regular rate and rhythm. LUNGS: Clear to auscultation bilaterally. ABDOMEN: Bowel sounds are present. Soft. Some tenderness to palpation in the epigastrium, but no guarding or rebound tenderness. EXTREMITIES: No peripheral edema. LABORATORY STUDIES: WBC 5.8, hemoglobin 12.7, platelets 181. Sodium 140, potassium 3.8, BUN 7, creatinine 0.78. Total bilirubin 0.3, alkaline phosphatase 121, AST 54, ALT 81, albumin 3.8. Lipase normal at 31. TSH 4.6. ASSESSMENT AND PLAN: 1. Upper abdominal pain, much improved. 2. Nausea, resolved. 3. Constipation, likely secondary to opioid use, improved today. I agree with Dr. Aldrich' assessment that her presenting abdominal pain and nausea are likely secondary to severe constipation, which in turn appears to be secondary to chronic opioid use. I think she is going to benefit from specific treatment for this. Start Movantik 12.5 mg daily. Also, continue with MiraLAX 17 g once or twice daily, titrate it to have a daily bowel movement. With such symptomatic improvement today, I think from a GI perspective, she could potentially be discharged from the hospital. She could follow up as needed with Dr. Palacios in the GI Clinic. Please call back anytime with questions or concerns. Job ID: [id number]
--- NOTE | 2018-12-30 15:24 | PDOC.PN ---
- Subjective Encounter Start Date: 12/30/18 Encounter Start Time: 10:15 Subjective: pt up in bed feels much better, will advance his diet - Objective Resuscitation Status - Order Detail: 12/29/18 12:02 Resuscitation Status Routine Resuscitation Status: FULL: Full Resuscitation Vital Signs & Weight: Vital Signs (12 hours) Temp Pulse Resp BP Pulse Ox 12/30/18 07:46 98.1 F 60 18 122/84 98 12/30/18 04:00 98.4 F 71 16 115/72 94 L Weight Weight 209 lb 8 oz I&O: 12/29/18 12/30/18 12/31/18 06:59 06:59 06:59 Intake Total 10 Balance 10 Result Diagrams: 12/30/18 06:51 12/30/18 06:51 Phys Exam - Physical Examination Neck: no nodes, no JVD, supple, full ROM Respiratory: no wheezing, no rales, no rhonchi, wheezing present, clear to auscultation bilateral Cardiovascular: RRR, no significant murmur, no rub, gallop, irregular Gastrointestinal: soft, non-tender, no distention, positive bowel sounds Dx/Plan (1) Abdominal pain Code(s): R10.9 - UNSPECIFIED ABDOMINAL PAIN Status: Acute (2) Nausea & vomiting Code(s): R11.2 - NAUSEA WITH VOMITING, UNSPECIFIED Status: Acute (3) Obesity (BMI 30.0-34.9) Code(s): E66.9 - OBESITY, UNSPECIFIED Status: Chronic (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 Review of Systems - Review of Systems Respiratory: negative: Cough, Dry, Shortness of Breath, Hemoptysis, SOB with Excertion, Pleuritic Pain, Sputum, Wheezing Cardiovascular: negative: chest pain, palpitations, orthopnea, paroxysmal nocturnal dyspnea, edema, light headedness, other Gastrointestinal: negative: Nausea, Vomiting, Abdominal Pain, Diarrhea, Constipation, Melena, Hematochezia, Other Genitourinary: negative: Dysuria, Frequency, Incontinence, Hematuria, Retention , Other - Medications/Allergies Allergies/Adverse Reactions: Allergies Allergy/AdvReac Type Severity Reaction Status Date / Time aspirin Allergy Verified 02/04/17 22:10 ciprofloxacin [From Cipro] Allergy Verified 02/04/17 22:10 codeine Allergy Verified 06/01/17 10:59 Penicillins Allergy Verified 02/04/17 22:10 tramadol Allergy Hives Verified 02/04/17 22:10 Medications: Current Medications Acetaminophen (Tylenol) 650 mg PO Q4H PRN PRN Reason: Headache/Fever/Mild Pain (1-3) Hydrocodone Bitart/Acetaminophen ([place] 5/325) 1 tab PO Q4H PRN PRN Reason: Moderate Pain (4-6) Clonazepam (Klonopin) 0.5 mg PO BID PRN PRN Reason: Anxiety Famotidine (Pepcid) 20 mg PO BID [facility] Hydrocortisone Sodium Succinate (Solu-Cortef) 25 mg IVP BID [facility] Miscellaneous Medication (Movantik) 12.5 mg PO DAILY-AC [facility] Miscellaneous Medication (Movantik) 12.5 mg PO NOW [facility] Stop: 12/30/18 17:30 Ondansetron HCl (Zofran) 4 mg IVP Q6H PRN PRN Reason: Nausea/Vomiting Last Admin: 12/29/18 16:46 Dose: 4 mg Polyethylene Glycol (Miralax) 17 gm PO BID [facility] Last Admin: 12/30/18 07:59 Dose: 17 gm Sodium Biphosphate/Sodium Phosphate (Fleet Enema) 133 ml FS ONE PRN PRN Reason: Constipation Stop: 12/31/18 12:17 Last Admin: 12/30/18 15:17 Dose: 133 ml Sodium Chloride (Flush - Normal Saline) 10 ml IVF Q12HR [facility] Last Admin: 12/30/18 09:07 Dose: Not Given Sodium Chloride (Flush - Normal Saline) 10 ml IVF PRN PRN PRN Reason: Saline Flush
[2018-12-30] MEDS: HYDROcodone/Acetaminophen 5/325 mg Tablet PO PRN ×2 (18:19→23:56)
[2018-12-30] MEDS: Famotidine 20 MG TAB PO SCH (21:20)
[2018-12-31] MEDS: HYDROcodone/Acetaminophen 5/325 mg Tablet PO PRN ×2 (03:58→07:55)
[2018-12-31] MEDS: Polyethylene Glycol 3350 17 GM Packet PO SCH (07:49)
[2018-12-31] MEDS: Famotidine 20 MG TAB PO SCH (07:50)
[2018-12-31] MEDS: Hydrocortisone Sod Succ/PF 100 mg/2 ml Vial IVP SCH (07:50)
[2018-12-31] MEDS ORDERED: Morphine 2 MG/ML SYRINGE SLOW IVP SCH (11:00)
[2018-12-31 12:40] VITALS: BP 142/90; TEMP 98.4
--- NOTE | 2019-01-01 08:17 | DIS ---
DATE OF ADMISSION: 12/28/2018 DATE OF DISCHARGE: 12/31/2018 DISCHARGE DIAGNOSES: 1. Abdominal pain, most likely secondary to constipation, which is most likely secondary to opioid use. 2. Nausea, vomiting. 3. Obesity. 4. Possible mild Tico's crisis. HOSPITAL COURSE: The patient is a very pleasant 48-year-old female, who initially presented to the hospital with abdominal pain, nausea, and vomiting. She does have a history of opioid use due to chronic back pain and chronic rib pain. She did have a CT of abdomen and pelvis, which indicated diffuse fatty changes in the liver, also stable left adrenal mass and a tiny fat containing mid level ventral wall hernia. She also was noted to have significant amount of stool in her bowels. At this time, she was seen by GI, who thought that her abdominal pain, nausea, and vomiting was most likely secondary to her constipation. She was put on MiraLAX and was given a Fleet enema. She had multiple bowel movements. Her abdominal pain improved. She was able to tolerate oral food without any problems. I have advised her against using or minimize the use of narcotics. The patient understands verbally. She will follow up with GI as needed. MEDICATIONS: 1. Pepcid 20 mg b.i.d. 2. Movantik 12.5 daily, this was new. 3. MiraLAX 17 g p.o. b.i.d. 4. Klonopin 0.5 b.i.d. 5. Solu-Cortef, she is going to take in the evening. 6. Albuterol as needed. 7. Hydrocodone as needed. FOLLOWUP: She does have a pain doctor and she follows the pain doctor. PHYSICAL EXAMINATION: VITAL SIGNS: Temperature 98.4, pulse 77, respiratory rate 20, 96% on room air, and blood pressure 142/90. GENERAL: She is awake, alert, and oriented x3. Does not appear in distress. CV: S1 and S2 present. No murmurs, rubs, or gallops. ABDOMEN: Soft. Mild tenderness to her epigastric area. Bowel sounds are present x2. The patient again will be discharged home. She will follow with her primary and also with GI as needed. Job ID: [id number]
== END 2018-12-31 13:25 | disposition home or self-care (01) ==
LOC: ERS 16:31 → T4-A 23:06 → 2SE 12-29 23:16 → T4-A 12-29 23:20
PROVIDERS: ADMIT Family Medicine; ATTEND Family Medicine
DX: R10.10 Upper abdominal pain, unspecified (principal); R11.2 Nausea with vomiting, unspecified; E27.1 Primary adrenocortical insufficiency; G89.29 Other chronic pain; M54.9 Dorsalgia, unspecified; R07.81 Pleurodynia; K59.00 Constipation, unspecified; I10 Essential (primary) hypertension; F17.210 Nicotine dependence, cigarettes, uncomplicated; G40.909 Epilepsy, unspecified, not intractable, without status epilepticus; J45.909 Unspecified asthma, uncomplicated; G61.0 Guillain-Barre syndrome; E66.9 Obesity, unspecified; Z68.39 Body mass index [BMI] 39.0-39.9, adult; Z79.52 Long term (current) use of systemic steroids; Z79.899 Other long term (current) drug therapy; Z88.0 Allergy status to penicillin; Z88.1 Allergy status to other antibiotic agents; Z88.5 Allergy status to narcotic agent; Z88.8 Allergy status to other drugs, medicaments and biological substances; Z98.890 Other specified postprocedural states
CPT/HCPCS: 36415; 74177; 80053; 80076; 81003; 81015; 81025; 82533; 83690; 84443; 85025; 96361; 96374; 96375; 96376; C9113; G0378; J1720; J2270; J2405; Q9966

== ENCOUNTER 2019-05-25 14:15 | Outpatient (CLI) | payer BC ==
--- NOTE | 2019-05-25 15:19 | RAD ---
FOUR VIEWS OF THE LUMBOSACRAL SPINE: 05/25/19 HISTORY: Low back pain and left leg numbness. FINDINGS: AP, lateral, and oblique views of the lumbosacral spine were performed. The vertebral bodies and inte rvertebral discs demonstrate normal height and alignment without fracture or subluxation. No degenera tive changes are seen. Cholecystectomy clips are seen. IMPRESSION: No significant lumbar spine abnormality. POS: [facility]
== END 2019-05-25 14:16 | disposition home or self-care (01) ==
LOC: TBSIIMAG 14:15
PROVIDERS: ATTEND Neurological Surgery
DX: M54.5 Low back pain (principal)
CPT/HCPCS: 72110

== ENCOUNTER 2019-06-13 06:34 | Observation (INO) | payer BC ==
[2019-06-13] MEDS ORDERED: Azithromycin 500 MG VIAL ONE (07:57)
[2019-06-13] MEDS ORDERED: methylPREDNISolone Sod Succ/PF 125 MG/2 ML VIAL ONE (07:57)
[2019-06-13] MEDS ORDERED: cefTRIAXone\\ROCEPHIN 1 GM VIAL ONE (07:58)
[2019-06-13] MEDS ORDERED: Albuterol Sulfate 2.5 mg/3 ml Neb ONE ×2 (08:07→09:21)
[2019-06-13 08:14] LABS: #Eosinphils 0.3 thou/uL (0.0-0.7); #Lymphocytes 2.8 thou/uL (1.20-3.40); #Monocytes 0.5 thou/uL (0.11-0.59); %Basophils 0.6 % (0.0-1.0); %Eosinophils 3.6 % (0.0-10.0); %Lymphocytes 36.5 % (21.0-51.0); %Monocytes 6.1 % (0.0-10.0); %Neutrophils 53.2 % (42.0-75.0); Hemoglobin 14.6 g/dL (12.0-16.0); Mean Corpuscular HGB CONC 33.3 g/dL (32.0-36.0); Mean Corpuscular Hemoglobin 29.4 pg (27.0-31.0); Mean Corpuscular Volume 88.3 fL (78.0-98.0); Mean Platelet Volume 7.9 fL (7.4-10.4); Platelet Count 231 thou/uL (130-400); RBC Distribution Width 12.5 % (11.5-14.5); Red Blood Cell (RBC) Count 4.96 mill/uL (4.20-5.40); White Blood Cell (WBC) Count 7.5 thou/uL (4.8-10.8)
[2019-06-13 08:36] LABS: ALT (SGPT) 129 U/L (8-55); AST (SGOT) 116 U/L (5-34); Albumin 4.2 g/dL (3.5-5.0); Alkaline Phosphatase 131 U/L (40-150); Anion Gap 14 mmol/L (10-20); BUN (Urea Nitrogen) 15 mg/dL (7.0-18.7); Bilirubin, Total 0.3 mg/dL (0.2-1.2); Calc. Creatinine Clearance 0 mL/min (70-130); Calcium 9.7 mg/dL (7.8-10.44); Carbon Dioxide 21 mmol/L (22-29); Chloride 107 mmol/L (98-107); Estimated GFR-MDRD 75; Glucose 118 mg/dL (70-105); Potassium 3.6 mmol/L (3.5-5.1); Protein, Total 7.2 g/dL (6.0-8.3); Sodium 138 mmol/L (136-145)
[2019-06-13 08:41] LABS: Bilirubin Negative (Negative); Blood, Urine Negative (Negative); Clarity Turbid (Clear); Glucose, Urine (Dipstick) Normal (Negative); Leukocyte Negative Leu/uL (Negative); Nitrite Negative (Negative); Protein, Urine (Dipstick) 20 mg/dL (Neg-Trace); Urobilinogen Normal mg/dL (Less than 2)
[2019-06-13] MEDS ORDERED: Albuterol Sulfate 2.5 mg/0.5 ml Neb ONE (09:20)
--- NOTE | 2019-06-13 09:21 | RAD ---
PORTABLE CHEST 1 VIEW: Date: 06/13/19 Time: 0748 hours HISTORY: Shortness of breath. Productive cough. Fever. FINDINGS: Comparison made with exam of 06/22/18. The heart size is normal. The lungs are expanded without focal areas of consolidation, pneumothoraces , or pleural effusions. IMPRESSION: No radiographic evidence of acute cardiopulmonary process. POS: [facility]
[2019-06-13] MEDS ORDERED: Magnesium 2 GM/50 ML BAG (IN WATER) ONE (09:23)
[2019-06-13] MEDS ORDERED: Lorazepam 2 MG/ML VIAL ONE (10:22)
[2019-06-13] MEDS ORDERED: hydrALAZINE 20 MG/ML VIAL SLOW IVP PRN (12:01)
[2019-06-13] MEDS ORDERED: Sodium Chloride 0.65% Nasal 44 ML BOT EA NARE PRN (12:01)
[2019-06-13] MEDS ORDERED: Calcium Carbonate 500 MG ChewTAB PO PRN (12:01)
[2019-06-13] MEDS ORDERED: Loratadine 10 MG TAB PO PRN (12:01)
[2019-06-13] MEDS ORDERED: Bisacodyl 10 MG SUPP PR PRN (12:01)
[2019-06-13] MEDS ORDERED: Loperamide HCl 2 MG CAP PO PRN (12:01)
[2019-06-13] MEDS ORDERED: Acetaminophen 325 MG TAB PO PRN (12:01)
[2019-06-13] MEDS ORDERED: Ondansetron ODT 4 MG TAB PO PRN (12:01)
[2019-06-13] MEDS ORDERED: Ondansetron PF 4 MG/2 ML Vial IVP PRN (12:01)
[2019-06-13] MEDS ORDERED: Cepastat Lozenges 1 LOZ PO PRN (12:01)
[2019-06-13] MEDS ORDERED: Zolpidem Tartrate 5 MG TAB PO PRN (12:01)
[2019-06-13] MEDS ORDERED: cloNIDine 0.1 MG TAB PO PRN (12:01)
[2019-06-13] MEDS ORDERED: Senokot S 8.6-50 MG TAB PO PRN (12:01)
[2019-06-13] MEDS ORDERED: Diabetic Tussin 200 MG/10 ML UDCUP PO PRN (12:01)
[2019-06-13] MEDS ORDERED: Artificial Tears 18 DROP/0.9 ML EA EYE PRN (12:01)
[2019-06-13] MEDS ORDERED: Azithromycin 500 MG in Sodium Chloride 0.9% 250 ML 250 ML IVPB SCH (12:01)
--- NOTE | 2019-06-13 12:11 | HP ---
PRIMARY CARE PHYSICIAN: Dr. Selene Sanchez. REASON FOR ADMISSION: Acute asthma exacerbation/acute bronchitis. HISTORY OF PRESENT ILLNESS: A 48-year-old female, who has underlying history of Tico's disease as well as asthma, who came to emergency room with complaint of shortness of breath, cough, and fever. The patient reports that symptoms started about 1 week ago initially with flu-like illness. She was experiencing fever, body ache, headache, cough, and subsequently her symptoms progressed with cough productive of yellowish green sputum with a tinge amount of blood. She does have pleuritic chest discomfort. She denies any immobilization. She denies any prolonged travel. She denies any recent travel as well as sick exposure. She was also experiencing and hearing her own wheezing with exertion. She tried her nebulizer machine at home without any significant improvement. She was feeling herself that her condition was deteriorating and that is why she decided to go to emergency room for evaluation today. In the emergency room, she was hemodynamically stable with saturation normal. She was having frequent episodes of barking type of cough. Her chest x-ray was unremarkable. Her routine blood test also unremarkable other than abnormal LFT. In the emergency room, she was given several rounds of DuoNeb therapy, magnesium sulfate, Rocephin, azithromycin, Solu-Medrol, but her condition was not improving, and that is why we decided to keep this patient in hospital for observation. REVIEW OF SYSTEMS: CONSTITUTIONAL: Negative for weight loss or gain, ability to conduct usual activities. SKIN: Negative for rash, itching. EYES: Negative for double vision, pain. ENT/MOUTH: Negative for nose bleeding, neck stiffness, pain, tenderness. CARDIOVASCULAR: Negative for palpitations, dyspnea on exertion, orthopnea. RESPIRATORY: Negative for shortness of breath, wheezing, cough, hemoptysis, fever or night sweats. GASTROINTESTINAL: Negative for poor appetite, abdominal pain, heartburn, nausea, vomiting, constipation, or diarrhea. GENITOURINARY: Negative for urgency, frequency, dysuria, nocturia. MUSCULOSKELETAL: Negative for pain, swelling. NEUROLOGIC/PSYCHIATRIC: Negative for anxiety, depression. ALLERGY/IMMUNOLOGIC: Negative for skin rash, bleeding tendency. Please see my HPI for pertinent positives and negatives. All other review of systems reviewed and negative except as mentioned in HPI. ALLERGIES: 1. ASPIRIN. 2. CIPROFLOXACIN. 3. CODEINE. 4. PENICILLIN. 5. TRAMADOL. PAST MEDICAL HISTORY: 1. Tico's disease. 2. Asthma. 3. Obesity. 4. History of seizure in the past. 5. History of Guillain-Holt syndrome. 6. Hypertension. 7. Achalasia cardia. PAST SURGICAL HISTORY: 1. Hernia repair. 2. Spinal surgery. 3. Hysterectomy. 4. x2. 5. Left fallopian tube removed. 6. Lung biopsy. 7. Esophagus dilated x4. 8. Cholecystectomy. 9. Oophorectomy. 10. Hand surgery. 11. Heller myotomy. 12. Black fundoplication. 13. ERCP. 14. Cervical fusion. PAST PSYCHIATRIC HISTORY: 1. Anxiety. 2. Depression. 3. History of inpatient psychiatric hospitalization in 2002. SOCIAL HISTORY: The patient smokes half pack per day. She denies any alcohol abuse. She denies any other illicit drug abuse. She lives at home with a roommate. FAMILY HISTORY: Unable to determine because the patient is adopted. EMERGENCY ROOM COURSE: The patient received several rounds of DuoNeb therapy, Rocephin, azithromycin, Ativan, Solu-Medrol 125 mg, and IV fluid. PHYSICAL EXAMINATION: VITAL SIGNS: Most recent vital signs; blood pressure 116/77, pulse 98, respiratory rate 22, temperature 98.3, saturation 97% on room air, weight 92.9 kg. GENERAL: The patient is currently alert and awake, in mild distress due to cough. HEENT: Head normocephalic and atraumatic. Eyes; pupils round and reactive to light. Extraocular muscle intact. ENT; oropharynx within normal limit. Moist mucous membranes. No oral lesion. No pharyngeal erythema. No exudate. No palpable lymph node. NECK: Supple. No JVD. No thyromegaly. No carotid bruit. LUNGS: Bilateral wheezing heard. No rales. No accessory muscles of respiration in use. CARDIAC: S1, S2 regular. Slight tachycardia. No murmur. No gallop. No rub. ABDOMEN: Obesity present. Bowel sounds present. Nontender. Nondistended. No organomegaly. No mass. No suprapubic tenderness. BACK: Unremarkable. No CVA tenderness. EXTREMITIES: Upper extremities; passive movement of all joints are normal. Lower extremities; no edema. No calf tenderness. Good distal pulsation. SKIN: No skin rash. HEMATOLOGIC: No lymphadenopathy. PSYCHIATRIC: Normal affect. NEUROLOGIC: Nonfocal examination. She moves all 4 limbs. Speech normal. SIGNIFICANT LABORATORY DATA: Tele monitor showing sinus rhythm. Chest x-ray based on my review, no acute cardiopulmonary process. CBC: WBC 7.5, hemoglobin 14.6, platelet 231. BMP: Sodium 138, potassium 3.6, chloride 107, carbon dioxide 21, BUN 15, creatinine 0.82, glucose 118, calcium 9.7. Lactic acid 1.6. LFT: AST 116, ALT 129, alkaline phosphatase 131, albumin 4.2. Troponin I less than 0.010. Urinalysis normal. ASSESSMENT AND PLAN: 1. Acute asthma exacerbation with acute asthmatic bronchitis. The patient's current presentation with upper respiratory infection with progression to cough, productive sputum with tinge amount of blood with increasing shortness of breath and wheezing consistent with asthmatic bronchitis. She will need a hospitalization because she has failed home treatment as well as emergency room treatment. We will treat with DuoNeb every 4 hourly and as needed, Dulera 2 puffs inhalation b.i.d., Solu-Medrol 40 mg IV q.6 hourly, Mucinex 600 mg twice daily, empiric antibiotic therapy with Rocephin 1 g q.24 hour, and azithromycin 500 mg IV daily. We will also check respiratory virus panel to rule out any virus infection. The patient will need symptomatic treatment. The patient's pleuritic pain is controlled with pain medication. 2. Abnormal LFT, most likely related with fatty liver, which was shown on previous CAT scan. We will obtain right upper quadrant ultrasound. We will also check hepatitis profile and we will repeat LFT tomorrow. 3. Tico's disease. At this point, we are continuing with the Solu-Medrol. Upon discharge, we will continue her Solu-Cortef. 4. Deep venous thrombosis prophylaxis, not needed. 5. Anxiety and depression. We will continue Klonopin 0.5 mg b.i.d. 6. GI prophylaxis. Pepcid 20 mg p.o. b.i.d. CODE STATUS: The patient is full code. The patient does not have any surrogate decision maker. DISPOSITION PLAN: Based on clinical course, we are expecting patient stays in the hospital 24 to 48 hours. Plan of care discussed with the patient in detail. Job ID: [id number]
[2019-06-13 12:23] VITALS: BMI 37.3
[2019-06-13] MEDS: HYDROcodone/Acetaminophen 10/325 mg Tablet PO PRN ×3 (12:47→22:26)
[2019-06-13] MEDS: Sodium Chloride 0.9% 1,000 ML IV SCH (12:47)
[2019-06-13] MEDS: methylPREDNISolone Sod Succ/PF 125 MG/2 ML VIAL IVP SCH ×2 (12:47→20:58)
[2019-06-13] MEDS: Mometasone/Formoterol 120 PUFF INHALER INH SCH (18:30)
[2019-06-13] MEDS: Famotidine 20 MG TAB PO SCH (20:58)
[2019-06-13] MEDS: guaiFENesin ER 600 MG TAB PO SCH (20:58)
[2019-06-13] MEDS: clonazePAM 0.5 MG TAB PO SCH (20:58)
[2019-06-14] MEDS: Sodium Chloride 0.9% 1,000 ML IV SCH (00:52)
[2019-06-14] MEDS: methylPREDNISolone Sod Succ/PF 125 MG/2 ML VIAL IVP SCH ×2 (01:24→09:45)
[2019-06-14 06:28] LABS: ALT (SGPT) 105 U/L (8-55); AST (SGOT) 54 U/L (5-34); Albumin 3.9 g/dL (3.5-5.0); Alkaline Phosphatase 118 U/L (40-150); Anion Gap 11 mmol/L (10-20); BUN (Urea Nitrogen) 9 mg/dL (7.0-18.7); Bilirubin, Total 0.3 mg/dL (0.2-1.2); Calc. Creatinine Clearance 124 mL/min (70-130); Carbon Dioxide 19 mmol/L (22-29); Chloride 109 mmol/L (98-107); Estimated GFR-MDRD 77; Globulin 2.7 g/dL (2.4-3.5); Glucose 287 mg/dL (70-105); Potassium 4.4 mmol/L (3.5-5.1); Protein, Total 6.6 g/dL (6.0-8.3); Sodium 135 mmol/L (136-145)
[2019-06-14 06:48] LABS: HBCM Index 0.08 S/CO (0-0.79); Hep A IgM AB Non-Reactive (NonReactive); Hep A IgM S/CO 0.12 S/CO (0-0.79); Hep B Surf Ag Non-Reactive S/CO (NonReactive); Hep C IgG Ab Non-Reactive (NonReactive); Hep C Index 0.38 S/CO (0-0.79); Hepatitis B Core IgM Abs Non-Reactive (NonReactive)
--- NOTE | 2019-06-14 06:50 | ULT ---
GALLBLADDER ULTRASOUND: Date: 06/14/19 INDICATION: Elevated liver function enzymes. FINDINGS: Reference made to 12/28/18 CT exam. There is increased echogenicity of hepatic parenchyma. No focal hepatic lesion is identified. The gal lbladder is surgically absent. Common duct is normal at 4 mm. No ascites. IMPRESSION: 1. Status post cholecystectomy. 2. Hepatic steatosis. POS: [facility]
[2019-06-14] MEDS: Mometasone/Formoterol 120 PUFF INHALER INH SCH (07:45)
[2019-06-14] MEDS ORDERED: cefTRIAXone\\ROCEPHIN 1 GM in Sodium Chloride 0.9% 100 ML IVPB SCH (08:00)
[2019-06-14] MEDS ORDERED: Azithromycin 500 MG in Sodium Chloride 0.9% 250 ML 250 ML IVPB SCH (09:00)
[2019-06-14] MEDS: clonazePAM 0.5 MG TAB PO SCH (09:45)
[2019-06-14] MEDS: Famotidine 20 MG TAB PO SCH (09:46)
[2019-06-14] MEDS: guaiFENesin ER 600 MG TAB PO SCH (09:46)
[2019-06-14] MEDS: HYDROcodone/Acetaminophen 10/325 mg Tablet PO PRN ×2 (09:55→13:45)
--- NOTE | 2019-06-14 10:49 | DIS ---
DATE OF ADMISSION: 06/13/2019 DATE OF DISCHARGE: 06/14/2019 PRIMARY CARE PHYSICIAN: Dr. Selene Sanchez. DISCHARGE DISPOSITION: Home. PRIMARY DISCHARGE DIAGNOSES: Acute asthmatic bronchitis with asthma exacerbation, abnormal LFT due to hepatic steatosis. SECONDARY DISCHARGE DIAGNOSES: Tobacco abuse disorder, obesity with BMI 34, asthma, Litchfield's disease, and achalasia of esophagus. PRIMARY PROCEDURE/OPERATION: None. RADIOLOGICAL INVESTIGATION: Chest x-ray normal. Abdominal ultrasound showed fatty liver. SIGNIFICANT LABORATORY DATA: WBC 7.5, hemoglobin 14.6, and platelet 231. Sodium 135, creatinine 0.80. AST 54, ALT 105, alkaline phosphatase 118, albumin 3.9. Urinalysis normal. Hepatitis profile negative. Blood culture negative. Respiratory virus panel negative. DISCHARGE MEDICATIONS: 1. Prednisone 20 mg p.o. b.i.d. for 7 days. 2. Dulera 2 puffs inhalation b.i.d. 3. Pepcid 20 mg p.o. b.i.d. 4. Azithromycin 250 mg p.o. daily. 5. Mucinex 600 mg p.o. b.i.d. for 7 days. The patient will continue following medications; 1. Albuterol nebulization q.4 hourly. 2. Ventolin HFA 2 puffs q.4 hourly p.r.n. 3. Amlodipine 5 mg daily. 4. Klonopin 0.5 mg b.i.d. 5. [place] 7.5 one tablet b.i.d. p.r.n. 6. MiraLAX 17 g p.o. b.i.d. p.r.n. 7. Lyrica 50 mg p.o. at bedtime. 8. Hydrocortisone 20 mg p.o. in the morning and 10 mg in the evening, that medication will be started after 7 days. 9. Movantik 12.5 mg p.o. daily. CONTRAINDICATION: None. CODE STATUS: Full code. INPATIENT ALMOND SORTER: None. ALLERGIES: ASPIRIN, CIPROFLOXACIN, CODEINE, PENICILLIN, AND TRAMADOL. DISCHARGE PLAN: Posthospital, the patient is instructed to follow up with primary care physician. HOSPITAL COURSE: A 48-year-old female who came to emergency room with increasing cough and increasing shortness of breath. Because of cough, she was having abdominal wall soreness and chest wall soreness. Her chest x-ray was unremarkable. She was actively wheezing in the emergency room. She was tried emergency room treatment, but not improved and that is why we kept this patient in the hospital for observation for asthma exacerbation with asthmatic bronchitis. We are also suspecting part of tracheitis. She was treated with Solu-Medrol empiric antibiotic therapy and Mucinex with improvement. She is on room air. She is able to talk in full sentence. Only concern is cough and that is why we prescribed Mucinex. We are prescribing 7 days prednisone and after that, the patient will start her Solu-Cortef medication for Tico's disease. She also had abnormal LFT and that is why we checked hepatitis profile that was negative and the ultrasound showed fatty liver that was contributing to her abnormal LFT. I have seen and examined the patient at bedside today. She is on room air, stable vitals, ambulatory, tolerating p.o. well. I spoke with the patient and family member. Her examination is stable as well. She does not have any more wheezing and her cardiac examination is normal. All new medication prescription sent to her pharmacy. Job ID: [id number]
[2019-06-14 12:04] VITALS: BP 141/64; TEMP 97.9
== END 2019-06-14 14:46 | disposition home or self-care (01) ==
LOC: ERS 06:34 → 2SW 10:17
PROVIDERS: ADMIT Internal Medicine; ATTEND Internal Medicine
DX: J45.901 Unspecified asthma with (acute) exacerbation (principal); K76.0 Fatty (change of) liver, not elsewhere classified; R94.5 Abnormal results of liver function studies; F17.210 Nicotine dependence, cigarettes, uncomplicated; E66.9 Obesity, unspecified; E27.1 Primary adrenocortical insufficiency; K22.0 Achalasia of cardia; G61.0 Guillain-Barre syndrome; F41.9 Anxiety disorder, unspecified; F32.9 Major depressive disorder, single episode, unspecified; I10 Essential (primary) hypertension; Z68.34 Body mass index [BMI] 34.0-34.9, adult; Z88.6 Allergy status to analgesic agent; Z88.1 Allergy status to other antibiotic agents; Z88.5 Allergy status to narcotic agent; Z88.0 Allergy status to penicillin; Z79.899 Other long term (current) drug therapy
CPT/HCPCS: 36415; 71045; 76705; 80053; 80074; 81003; 83605; 84484; 85025; 87040; 87633; 94640; 94644; 96361; 96365; 96366; 96367; 96368; 96375; 96376; G0378; J0456; J0696; J2060; J2405; J2930; J3475; J3490; J7050; J7611; J7620

== ENCOUNTER 2020-05-27 14:17 | Emergency (ER) | payer BC ==
[2020-05-27 17:03] LABS: #Basophils 0.1 thou/uL (0.0-0.2); #Eosinphils 0.2 thou/uL (0.0-0.7); #Lymphocytes 3.4 thou/uL (1.20-3.40); #Monocytes 0.5 thou/uL (0.11-0.59); %Basophils 0.8 % (0.0-1.0); %Eosinophils 1.9 % (0.0-10.0); %Monocytes 5.9 % (0.0-10.0); %Neutrophils 54.4 % (42.0-75.0); Hemoglobin 16.5 g/dL (12.0-16.0); Mean Corpuscular HGB CONC 33.5 g/dL (32.0-36.0); Mean Corpuscular Hemoglobin 29.8 pg (27.0-31.0); Mean Corpuscular Volume 88.9 fL (78.0-98.0); Mean Platelet Volume 8.4 fL (7.4-10.4); Platelet Count 221 thou/uL (130-400); Red Blood Cell (RBC) Count 5.53 mill/uL (4.20-5.40); White Blood Cell (WBC) Count 9.1 thou/uL (4.8-10.8)
[2020-05-27 17:23] LABS: ALT (SGPT) 127 U/L (8-55); AST (SGOT) 103 U/L (5-34); Albumin 4.6 g/dL (3.5-5.0); Alkaline Phosphatase 159 U/L (40-110); Anion Gap 14 mmol/L (10-20); BUN (Urea Nitrogen) 12 mg/dL (7.0-18.7); Bilirubin, Total 0.5 mg/dL (0.2-1.2); Calc. Creatinine Clearance 0 mL/min (70-130); Carbon Dioxide 23 mmol/L (22-29); Chloride 109 mmol/L (98-107); Estimated GFR-MDRD 63; Globulin 3.2 g/dL (2.4-3.5); Glucose 88 mg/dL (70-105); Potassium 4.4 mmol/L (3.5-5.1); Protein, Total 7.8 g/dL (6.0-8.3); Sodium 142 mmol/L (136-145)
[2020-05-27] MEDS ORDERED: Fentanyl 100 MCG/2 ML VIAL ONE ×2 (19:10→20:42)
[2020-05-27 20:04] LABS: Bilirubin Negative (Negative); Blood, Urine Negative (Negative); Clarity Clear (Clear); Glucose, Urine (Dipstick) Normal (Negative); Ketone, Urine Negative (Negative); Leukocyte Negative Leu/uL (Negative); Nitrite Negative (Negative); Protein, Urine (Dipstick) 10 mg/dL (Neg-Trace); Specific Gravity, Urine 1.026 (1.002-1.036); Urobilinogen Normal mg/dL (Less than 2)
[2020-05-27] MEDS ORDERED: Dexamethasone 10 MG/ML VIAL ONE (20:42)
== END 2020-05-27 21:20 | disposition home or self-care (01) ==
LOC: ERS 14:17
DX: M54.5 Low back pain (principal); I10 Essential (primary) hypertension; E27.1 Primary adrenocortical insufficiency; J45.909 Unspecified asthma, uncomplicated; F41.9 Anxiety disorder, unspecified; F17.210 Nicotine dependence, cigarettes, uncomplicated
CPT/HCPCS: 36415; 80053; 81003; 84484; 85025; 93005; 96374; 96375; 96376; J1100; J3010

== ENCOUNTER 2021-05-25 14:34 | Outpatient (CLI) | payer MEDICARE, MEDICAID ==
[2021-05-25 16:37] LABS: #Basophils 0.1 10x3/uL (0.0-0.2); #Eosinphils 0.1 10x3/uL (0.0-0.5); #Monocytes 0.4 10x3/uL (0.0-1.1); %Basophils 0.5 % (0.0-2.0); %Eosinophils 0.9 % (0.0-6.0); %Lymphocytes 27.4 % (18.0-47.0); %Monocytes 4.5 % (0.0-10.0); %Neutrophils 65.5 % (40.0-75.0); Hemoglobin 15.5 g/dL (12.0-15.5); Mean Corpuscular HGB CONC 32.7 g/dL (32.0-36.0); Mean Corpuscular Hemoglobin 29.1 pg (27.0-33.0); Mean Corpuscular Volume 89.1 fl (81.6-98.3); Mean Platelet Volume 10.6 fl (7.4-10.4); Platelet Count 253 10x3/uL (150-450); RBC Distribution Width 12.6 % (11.5-14.5); Red Blood Cell (RBC) Count 5.32 10x6/uL (3.90-5.03); White Blood Cell (WBC) Count 9.1 10x3/uL (3.5-10.5)
[2021-05-25 16:57] LABS: Anion Gap 16 mmol/L (10-20); BUN (Urea Nitrogen) 10 mg/dL (7.0-18.7); Calc. Creatinine Clearance 0 mL/min (70-130); Calcium 9.6 mg/dL (7.8-10.44); Carbon Dioxide 21 mmol/L (22-29); Chloride 105 mmol/L (98-107); Glucose 117 mg/dL (70-105); Potassium 4.1 mmol/L (3.5-5.1); Sodium 138 mmol/L (136-145)
[2021-05-26 17:07] LABS: SARS-CoV-2 PCR by NAA Not Detected (NotDetected)
== END 2021-05-25 14:35 | disposition home or self-care (01) ==
LOC: LABBT 14:34
PROVIDERS: ATTEND Neurological Surgery
DX: Z01.818 Encounter for other preprocedural examination (principal); M54.16 Radiculopathy, lumbar region; Z20.822 Contact with and (suspected) exposure to COVID-19
CPT/HCPCS: 80048; 85025; U0003; U0005; 93005; 93010

== ENCOUNTER 2022-07-28 12:17 | Emergency (ER) | payer MEDICARE, MEDICAID ==
[~2022-07-28 12:17] MED LIST changes: -ISOVUE-370 76%-LOCM 1 ML ONE; +Iopamidol-370 76% 500 ML 1 ML ONE
[2022-07-28] MEDS ORDERED: Ondansetron PF 4 MG/2 ML Vial ONE (13:05)
[2022-07-28] MEDS ORDERED: Morphine 4 MG/ML VIAL ONE (13:05)
[2022-07-28 13:19] LABS: #Basophils 0.1 thou/uL (0.0-0.2); #Eosinphils 0.2 thou/uL (0.0-0.7); #Lymphocytes 3.4 thou/uL (1.20-3.40); #Monocytes 0.4 thou/uL (0.11-0.59); #Neutrophils 5.2 thou/uL (1.40-6.50); %Basophils 0.6 % (0.0-1.0); %Eosinophils 1.9 % (0.0-10.0); %Lymphocytes 36.5 % (21.0-51.0); %Monocytes 4.8 % (0.0-10.0); %Neutrophils 56.2 % (42.0-75.0); Hemoglobin 15.6 g/dL (12.0-16.0); Mean Corpuscular HGB CONC 34.4 g/dL (32.0-36.0); Mean Corpuscular Hemoglobin 30.7 pg (27.0-31.0); Mean Corpuscular Volume 89.3 fL (78.0-98.0); Mean Platelet Volume 8.2 fL (7.4-10.4); Platelet Count 199 thou/uL (130-400); RBC Distribution Width 12.4 % (11.5-14.5); Red Blood Cell (RBC) Count 5.08 mill/uL (4.20-5.40); White Blood Cell (WBC) Count 9.2 thou/uL (4.8-10.8)
[2022-07-28 13:30] LABS: ALT (SGPT) 57 U/L (8-55); AST (SGOT) 46 U/L (5-34); Albumin 4.3 g/dL (3.5-5.0); Alkaline Phosphatase 120 U/L (40-110); Anion Gap 13 mmol/L (10-20); BUN (Urea Nitrogen) 10 mg/dL (7.0-18.7); Bilirubin, Total 0.3 mg/dL (0.2-1.2); Calc. Creatinine Clearance 0 mL/min (70-130); Calcium 9.4 mg/dL (7.8-10.44); Carbon Dioxide 21 mmol/L (22-29); Chloride 108 mmol/L (98-107); Estimated GFR 85; Glucose 199 mg/dL (70-105); Lipase 49 U/L (8-78); Potassium 3.9 mmol/L (3.5-5.1); Protein, Total 7.3 g/dL (6.0-8.3); Sodium 138 mmol/L (136-145)
[2022-07-28 13:31] LABS: Bilirubin Negative (Negative); Blood, Urine Negative (Negative); Clarity Clear (Clear); Glucose, Urine (Dipstick) Normal (Negative); Ketone, Urine Negative (Negative); Leukocyte Negative Leu/uL (Negative); Nitrite Negative (Negative); Protein, Urine (Dipstick) 10 mg/dL (Neg-Trace); Specific Gravity, Urine 1.027 (1.002-1.036); Urobilinogen Normal mg/dL (Less than 2); pH, Urine 5.5 (5.0-9.0)
[2022-07-28] MEDS ORDERED: Dicyclomine 20 MG TAB ONE (14:59)
== END 2022-07-28 15:07 | disposition home or self-care (01) ==
LOC: ERS 12:17
DX: R10.32 Left lower quadrant pain (principal); R91.1 Solitary pulmonary nodule; I10 Essential (primary) hypertension; E11.9 Type 2 diabetes mellitus without complications
CPT/HCPCS: 36415; 74177; 80053; 81003; 83690; 84702; 85025; 96361; 96374; 96375; J2270; J2405; Q9967

== ENCOUNTER 2022-09-23 09:45 | Outpatient (CLI) | payer MEDICARE, MEDICAID | END 2022-09-23 09:46 | disposition home or self-care (01) | LOC: DTY/OP 09:45 | PROVIDERS: ATTEND Surgery | DX: E66.01 Morbid (severe) obesity due to excess calories (principal) | CPT/HCPCS: 97802 ==

== ENCOUNTER 2022-11-27 12:52 | Outpatient (CLI) | payer MEDICARE, MEDICAID ==
[2022-11-27 14:15] LABS: #Basophils 0.1 10x3/uL (0.0-0.2); #Eosinphils 0.2 10x3/uL (0.0-0.5); #Monocytes 0.6 10x3/uL (0.0-1.1); #Neutrophils 6.5 10x3/uL (1.5-8.4); %Basophils 0.6 % (0.0-2.0); %Eosinophils 1.5 % (0.0-6.0); %Lymphocytes 26.9 % (18.0-47.0); %Monocytes 5.6 % (0.0-10.0); %Neutrophils 64.2 % (40.0-75.0); Hemoglobin 15.1 g/dL (12.0-15.5); Mean Corpuscular HGB CONC 33.8 g/dL (32.0-36.0); Mean Corpuscular Hemoglobin 28.8 pg (27.0-33.0); Mean Corpuscular Volume 85.3 fl (81.6-98.3); Mean Platelet Volume 10.5 fl (7.4-10.4); Platelet Count 235 10x3/uL (150-450); Red Blood Cell (RBC) Count 5.24 10x6/uL (3.90-5.03); White Blood Cell (WBC) Count 10.1 10x3/uL (3.5-10.5)
[2022-11-27 14:41] LABS: ALT (SGPT) 88 U/L (8-55); AST (SGOT) 73 U/L (5-34); Albumin 4.7 g/dL (3.5-5.0); Alkaline Phosphatase 109 U/L (40-110); Anion Gap 16 mmol/L (10-20); BUN (Urea Nitrogen) 19 mg/dL (7.0-18.7); Bilirubin, Total 0.4 mg/dL (0.2-1.2); Calc. Creatinine Clearance 0 mL/min (70-130); Calcium 9.9 mg/dL (7.8-10.44); Carbon Dioxide 20 mmol/L (22-29); Chloride 107 mmol/L (98-107); Estimated GFR 88; Globulin 2.5 g/dL (2.4-3.5); Glucose 109 mg/dL (70-105); Potassium 3.9 mmol/L (3.5-5.1); Protein, Total 7.2 g/dL (6.0-8.3); Sodium 139 mmol/L (136-145)
[2022-11-27 20:09] LABS: Hemoglobin A1c 6.1 % (4.0-6.0)
== END 2022-11-27 12:53 | disposition home or self-care (01) ==
LOC: LABBT 12:52
PROVIDERS: ATTEND Surgery
DX: Z01.818 Encounter for other preprocedural examination (principal); E66.01 Morbid (severe) obesity due to excess calories
CPT/HCPCS: 71046; 80053; 83036; 85025; 93005; 93010

== ENCOUNTER 2022-11-27 13:00 | Inpatient (IN) | payer MEDICARE, MEDICAID ==
[2022-12-04] MEDS ORDERED: Heparin 5,000 UNITS/ML VIAL ONE (10:20)
[2022-12-04 10:28] LABS: SARS-CoV-2 NAA Rapid Test Not Detected (NotDetected)
[2022-12-04] MEDS ORDERED: Bupivacaine/Epinephrine 0.25% 30 ML VIAL ONE (11:46)
[2022-12-04] MEDS ORDERED: Fentanyl 250 MCG/5 ML VIAL ONE (11:56)
[2022-12-04] MEDS ORDERED: SUGAMMADEX SODIUM 200 MG/2 ML VIAL ONE (11:56)
[2022-12-04] MEDS ORDERED: Midazolam HCl 2 mg/2 ml Vial ONE (12:05)
[2022-12-04] MEDS ORDERED: Levofloxacin 500 mg/D5W 100 ml Premix Bag ONE (12:07)
[2022-12-04] MEDS ORDERED: Ketamine 50 MG/ML (10ML VIAL) ONE (12:14)
[2022-12-04] MEDS ORDERED: NEOSTIGMINE 3 MG/3 ML SYR 3 MG/3 ML SYRINGE ONE (12:15)
[2022-12-04] MEDS ORDERED: Ondansetron PF 4 MG/2 ML Vial ONE ×2 (12:15→14:48)
[2022-12-04] MEDS ORDERED: Rocuronium Bromide 10 MG/ML (10ML VIAL) ONE (12:15)
[2022-12-04] MEDS ORDERED: Albuterol HFA (OR) 200 PUFF INH ONE (12:15)
[2022-12-04] MEDS ORDERED: Lidocaine 1% PF 5 ML VIAL ONE (12:15)
[2022-12-04] MEDS ORDERED: Glycopyrrolate 0.2 MG/ML 5 ML SYRINGE ONE (12:15)
[2022-12-04] MEDS ORDERED: PHENYLEPHRINE-NS 100 MCG/ML 10 ML SYRINGE ONE (12:15)
[2022-12-04] MEDS ORDERED: PROPOFOL 200 MG/20 ML VIAL ONE (12:15)
[2022-12-04] MEDS ORDERED: ePHEDrine 50 MG/ML VIAL ONE (12:15)
[2022-12-04] MEDS ORDERED: Dexamethasone 20 MG/5 ML VIAL ONE (12:15)
[2022-12-04] MEDS ORDERED: diphenhydrAMINE 50 MG/ML VIAL IVP PRN ×2 (14:25→14:26)
[2022-12-04] MEDS ORDERED: Ondansetron PF 4 MG/2 ML Vial IVP PRN (14:25)
[2022-12-04] MEDS ORDERED: Ipratropium/Albuterol 3 ML NEB NEB PRN (14:25)
[2022-12-04] MEDS ORDERED: Dextrose 5% in Water 1,000 ML IV PRN (14:25)
[2022-12-04] MEDS ORDERED: Hydrocodone-Acetamin 15 ML UDCUP PO PRN (14:25)
[2022-12-04] MEDS ORDERED: Dextrose 50% Abboject 50 ML SYRINGE SLOW IVP PRN (14:25)
[2022-12-04] MEDS ORDERED: hydrALAZINE 20 MG/ML VIAL SLOW IVP PRN (14:25)
[2022-12-04] MEDS ORDERED: Promethazine HCl 25 MG/ML VIAL IM PRN ×2 (14:25→14:26)
[2022-12-04] MEDS ORDERED: Ondansetron HCl/PF 4 MG/2 ML Vial IVP PRN (14:26)
[2022-12-04] MEDS ORDERED: Naloxone HCl 0.4 mg/ml Vial IV PRN (14:26)
[2022-12-04] MEDS ORDERED: FENTANYL 500 MCG/10 ML VIAL 2,000 MCG in Sodium Chloride 0.9% 60 ML IV PRN (14:26)
[2022-12-04] MEDS ORDERED: diphenhydrAMINE 25 MG CAP PO PRN (14:26)
[2022-12-04] MEDS ORDERED: diphenhydrAMINE 50 MG/ML VIAL IM PRN (14:26)
[2022-12-04] MEDS ORDERED: Communication Order-Pharmacy FS SCH (14:30)
[2022-12-04] MEDS ORDERED: Fentanyl 100 MCG/2 ML VIAL ONE ×2 (14:48→15:14)
[2022-12-04] MEDS ORDERED: Promethazine HCl 25 MG/ML VIAL ONE (15:13)
[2022-12-04] MEDS ORDERED: HYDROmorphone 0.5 MG/0.5 ML SYRINGE ONE (15:21)
[2022-12-04] MEDS ORDERED: Labetalol HCl 100 MG/20 ML VIAL ONE (15:54)
[2022-12-04] MEDS: D5 1/2 NS w/20 mEq KCL 1,000 ML IV SCH ×2 (21:02)
[2022-12-04] MEDS: Hydrocortisone Sod Succ/PF 100 mg/2 ml Vial IVP SCH (21:03)
[2022-12-04] MEDS: Ondansetron PF 4 MG/2 ML Vial IVP PRN (21:03)
[2022-12-05 00:41] VITALS: BMI 41.8
[2022-12-05] MEDS: Ondansetron PF 4 MG/2 ML Vial IVP PRN ×3 (03:55→20:55)
[2022-12-05] MEDS: D5 1/2 NS w/20 mEq KCL 1,000 ML IV SCH ×2 (05:07→14:18)
[2022-12-05] MEDS: Hydrocortisone Sod Succ/PF 100 mg/2 ml Vial IVP SCH ×3 (05:08→20:57)
[2022-12-05 06:56] LABS: #Lymphocytes 1.9 thou/uL (1.20-3.40); #Monocytes 1.1 thou/uL (0.11-0.59); #Neutrophils 10.1 thou/uL (1.40-6.50); %Basophils 0.4 % (0.0-1.0); %Eosinophils 0.2 % (0.0-10.0); %Lymphocytes 14.3 % (21.0-51.0); %Monocytes 8.5 % (0.0-10.0); %Neutrophils 76.6 % (42.0-75.0); Hemoglobin 13.3 g/dL (12.0-16.0); Mean Corpuscular HGB CONC 33.4 g/dL (32.0-36.0); Mean Corpuscular Volume 89.6 fl (78.0-98.0); Mean Platelet Volume 8.8 fL (7.4-10.4); Platelet Count 196 10x3/uL (130-400); RBC Distribution Width 12.6 % (11.5-14.5); Red Blood Cell (RBC) Count 4.46 mill/uL (4.20-5.40); White Blood Cell (WBC) Count 13.2 10x3/uL (4.8-10.8)
[2022-12-05 07:11] LABS: Anion Gap 13 mmol/L (10-20); BUN (Urea Nitrogen) 7 mg/dL (7.0-18.7); Calc. Creatinine Clearance 137 mL/min (70-130); Calcium 8.8 mg/dL (7.8-10.44); Carbon Dioxide 20 mmol/L (22-29); Chloride 107 mmol/L (98-107); Estimated GFR 97; Glucose 129 mg/dL (70-105); Potassium 4.2 mmol/L (3.5-5.1); Sodium 136 mmol/L (136-145)
[2022-12-05] MEDS: Pantoprazole 40 MG VIAL IVP SCH (08:22)
[2022-12-05] MEDS: Hydrocodone-Acetamin 15 ML UDCUP PO PRN ×4 (08:30→20:55)
[2022-12-06] MEDS: D5 1/2 NS w/20 mEq KCL 1,000 ML IV SCH ×4 (00:37→21:51)
[2022-12-06] MEDS: Promethazine HCl 25 MG/ML VIAL IM PRN ×3 (00:46→16:55)
[2022-12-06] MEDS: Morphine 4 MG/ML VIAL SLOW IVP PRN ×6 (00:50→20:58)
[2022-12-06] MEDS: Ondansetron PF 4 MG/2 ML Vial IVP PRN ×2 (04:25→14:12)
[2022-12-06] MEDS: Hydrocortisone Sod Succ/PF 100 mg/2 ml Vial IVP SCH ×3 (06:10→21:06)
[2022-12-06 08:04] LABS: #Eosinphils 0.3 thou/uL (0.0-0.7); #Lymphocytes 1.8 thou/uL (1.20-3.40); #Monocytes 0.6 thou/uL (0.11-0.59); #Neutrophils 6.7 thou/uL (1.40-6.50); %Basophils 0.3 % (0.0-1.0); %Eosinophils 2.8 % (0.0-10.0); %Lymphocytes 19.6 % (21.0-51.0); %Neutrophils 71.3 % (42.0-75.0); Hemoglobin 12.4 g/dL (12.0-16.0); Mean Corpuscular HGB CONC 32.9 g/dL (32.0-36.0); Mean Corpuscular Hemoglobin 29.9 pg (27.0-31.0); Mean Corpuscular Volume 90.8 fl (78.0-98.0); Mean Platelet Volume 8.7 fL (7.4-10.4); Platelet Count 155 10x3/uL (130-400); RBC Distribution Width 12.8 % (11.5-14.5); Red Blood Cell (RBC) Count 4.15 mill/uL (4.20-5.40); White Blood Cell (WBC) Count 9.4 10x3/uL (4.8-10.8)
[2022-12-06 08:26] LABS: ALT (SGPT) 89 U/L (8-55); AST (SGOT) 46 U/L (5-34); Albumin 3.8 g/dL (3.5-5.0); Alkaline Phosphatase 81 U/L (40-110); Anion Gap 13 mmol/L (10-20); BUN (Urea Nitrogen) 7 mg/dL (7.0-18.7); Bilirubin, Total 0.4 mg/dL (0.2-1.2); Calc. Creatinine Clearance 145 mL/min (70-130); Calcium 8.8 mg/dL (7.8-10.44); Carbon Dioxide 23 mmol/L (22-29); Chloride 107 mmol/L (98-107); Estimated GFR 104; Globulin 2.4 g/dL (2.4-3.5); Glucose 123 mg/dL (70-105); Potassium 4.1 mmol/L (3.5-5.1); Protein, Total 6.2 g/dL (6.0-8.3); Sodium 139 mmol/L (136-145)
[2022-12-06] MEDS: Pantoprazole 40 MG VIAL IVP SCH (08:28)
[2022-12-06] MEDS ORDERED: Scopolamine 1.5 mg/72 hour Patch TD SCH (17:00)
[2022-12-07] MEDS: Morphine 2 MG/ML VIAL SLOW IVP PRN ×2 (01:49→05:52)
[2022-12-07] MEDS: Hydrocortisone Sod Succ/PF 100 mg/2 ml Vial IVP SCH (05:51)
[2022-12-07] MEDS: D5 1/2 NS w/20 mEq KCL 1,000 ML IV SCH (06:00)
[2022-12-07] MEDS: Hydrocodone-Acetamin 15 ML UDCUP PO PRN (09:50)
[2022-12-07] MEDS: Pantoprazole 40 MG VIAL IVP SCH (09:51)
[2022-12-07] MEDS ORDERED: diphenhydrAMINE 25 MG CAP PO PRN (11:11)
[2022-12-07 13:30] VITALS: BP 142/99; TEMP 98.3
== END 2022-12-07 15:00 | disposition home or self-care (01) | DRG 621 ==
LOC: SURG A 12-04 08:25
PROVIDERS: ADMIT Surgery; ATTEND Surgery
PROC: 0DB64Z3 Excision of Stomach, Percutaneous Endoscopic Approach, Vertical (ICD-10-PCS; principal; 2022-12-04)
DX: E66.01 Morbid (severe) obesity due to excess calories (principal); Z20.822 Contact with and (suspected) exposure to COVID-19; Z79.899 Other long term (current) drug therapy; Z90.710 Acquired absence of both cervix and uterus; Z90.49 Acquired absence of other specified parts of digestive tract; Z88.1 Allergy status to other antibiotic agents; Z88.5 Allergy status to narcotic agent; Z88.8 Allergy status to other drugs, medicaments and biological substances; Z68.41 Body mass index [BMI] 40.0-44.9, adult
CPT/HCPCS: 36415; 80048; 80053; 85025; 88307; 94640; C1889; C9113; J1100; J1170; J1200; J1644; J1650; J1720; J1956; J2250; J2270; J2272; J2405; J2550; J2704; J3010; J3480; J3490; J7620; U0002

== ENCOUNTER 2023-01-29 10:48 | Inpatient (IN) | payer MEDICARE, MEDICAID ==
[2023-01-29] MEDS ORDERED: Magnesium 2 GM/50 ML BAG (IN WATER) ONE (11:08)
[2023-01-29] MEDS ORDERED: predniSONE 20 MG TAB ONE (11:08)
[2023-01-29] MEDS ORDERED: Ipratropium/Albuterol 3 ML NEB ONE (11:20)
[2023-01-29 11:49] LABS: SARS-CoV-2 NAA Rapid Test Not Detected (NotDetected)
[2023-01-29] MEDS ORDERED: cefTRIAXone\\ROCEPHIN 2 GM VIAL ONE (11:51)
[2023-01-29 11:58] LABS: #Lymphocytes 1.7 thou/uL (1.20-3.40); #Monocytes 0.5 thou/uL (0.11-0.59); #Neutrophils 4.7 thou/uL (1.40-6.50); %Basophils 0.5 % (0.0-1.0); %Eosinophils 0.7 % (0.0-10.0); %Lymphocytes 24.4 % (21.0-51.0); %Monocytes 7.1 % (0.0-10.0); %Neutrophils 67.3 % (42.0-75.0); Hemoglobin 15.8 g/dL (12.0-16.0); MDiff Complete? YES; Mean Corpuscular HGB CONC 32.8 g/dL (32.0-36.0); Mean Corpuscular Volume 91.5 fl (78.0-98.0); Mean Platelet Volume 10.1 fL (7.4-10.4); Platelet Count 107 10x3/uL (130-400); Platelet Morphology Comment Appears Decreased; Polychromasia SLIGHT = 2-3 cells (100X) (0-2/hpf); RBC Distribution Width 14.2 % (11.5-14.5); Red Blood Cell (RBC) Count 5.25 mill/uL (4.20-5.40)
[2023-01-29 12:01] LABS: ALT (SGPT) 17 U/L (8-55); AST (SGOT) 30 U/L (5-34); Albumin 3.4 g/dL (3.5-5.0); Alkaline Phosphatase 92 U/L (40-110); Anion Gap 16 mmol/L (10-20); BUN (Urea Nitrogen) 10 mg/dL (7.0-18.7); Bilirubin, Total 0.6 mg/dL (0.2-1.2); Calc. Creatinine Clearance 0 mL/min (70-130); Calcium 8.4 mg/dL (7.8-10.44); Carbon Dioxide 23 mmol/L (22-29); Chloride 102 mmol/L (98-107); Estimated GFR 106; Globulin 2.4 g/dL (2.4-3.5); Glucose 140 mg/dL (70-105); Potassium 2.9 mmol/L (3.5-5.1); Protein, Total 5.8 g/dL (6.0-8.3); Sodium 138 mmol/L (136-145)
[2023-01-29] MEDS ORDERED: Potassium Chloride 20 MEQ TAB ONE ×2 (12:19→12:25)
[2023-01-29] MEDS ORDERED: Azithromycin 500 MG VIAL ONE (12:31)
[2023-01-29] MEDS ORDERED: Ondansetron ODT 4 MG TAB PO PRN (13:10)
[2023-01-29] MEDS ORDERED: Ondansetron PF 4 MG/2 ML Vial IVP PRN (13:10)
[2023-01-29] MEDS ORDERED: Hydrocortisone Sod Succ/PF 100 mg/2 ml Vial IM SCH (13:45)
[2023-01-29] MEDS ORDERED: Azithromycin 500 MG in Sodium Chloride 0.9% 250 ML 250 ML IVPB SCH (13:45)
[2023-01-29] MEDS ORDERED: Ipratropium/Albuterol 3 ML NEB NEB SCH (15:00)
[2023-01-29 15:12] LABS: Troponin I Less than 0.010 ng/mL (< 0.028)
[2023-01-29] MEDS ORDERED: NS 0.9% w/ 40 MEQ KCL 500 ML IV SCH (15:30)
[2023-01-29] MEDS ORDERED: Potassium Chloride 40 MEQ in Sodium Chloride 0.9% 500 ML IV SCH (15:45)
[2023-01-29] MEDS: Ipratropium/Albuterol 3 ML NEB NEB SCH ×3 (16:48→22:07)
[2023-01-29] MEDS: Lactated Ringer's 1,000 ML IV SCH ×2 (17:41→23:04)
[2023-01-29] MEDS: Acetaminophen 325 MG TAB PO PRN ×2 (17:47→23:00)
[2023-01-29 17:55] LABS: Troponin I Less than 0.010 ng/mL (< 0.028)
[2023-01-29] MEDS: Metoclopramide HCl 10 MG/2 ML VIAL IVP PRN ×2 (18:03→23:58)
[2023-01-29] MEDS: Mometasone/Formoterol 200/5 60 PUFF INH SCH (18:45)
[2023-01-29 19:32] VITALS: BMI 31.4
[2023-01-29] MEDS: Hydrocortisone Sod Succ/PF 100 mg/2 ml Vial IVP SCH (19:56)
[2023-01-29] MEDS: Famotidine 20 MG TAB PO SCH (20:12)
[2023-01-29 23:51] LABS: Anion Gap 18 mmol/L (10-20); BUN (Urea Nitrogen) 9 mg/dL (7.0-18.7); Calc. Creatinine Clearance 127 mL/min (70-130); Calcium 8.4 mg/dL (7.8-10.44); Carbon Dioxide 18 mmol/L (22-29); Chloride 108 mmol/L (98-107); Estimated GFR 109; Glucose 160 mg/dL (70-105); Magnesium 2.2 mg/dL (1.6-2.6); Potassium 3.5 mmol/L (3.5-5.1); Sodium 140 mmol/L (136-145)
[2023-01-30] MEDS: Ipratropium/Albuterol 3 ML NEB NEB SCH ×6 (02:16→22:45)
[2023-01-30 04:45] LABS: Hemoglobin 14.3 g/dL (12.0-16.0); Mean Corpuscular HGB CONC 32.8 g/dL (32.0-36.0); Mean Corpuscular Hemoglobin 30.3 pg (27.0-31.0); Mean Corpuscular Volume 92.3 fl (78.0-98.0); Mean Platelet Volume 10.1 fL (7.4-10.4); Platelet Count 91 10x3/uL (130-400); RBC Distribution Width 14.3 % (11.5-14.5); Red Blood Cell (RBC) Count 4.71 mill/uL (4.20-5.40); White Blood Cell (WBC) Count 6.1 10x3/uL (4.8-10.8)
[2023-01-30 05:02] LABS: ALT (SGPT) 16 U/L (8-55); AST (SGOT) 23 U/L (5-34); Albumin 3.2 g/dL (3.5-5.0); Alkaline Phosphatase 76 U/L (40-110); Anion Gap 13 mmol/L (10-20); BUN (Urea Nitrogen) 11 mg/dL (7.0-18.7); Bilirubin, Total 0.3 mg/dL (0.2-1.2); Calc. Creatinine Clearance 132 mL/min (70-130); Calcium 8.3 mg/dL (7.8-10.44); Carbon Dioxide 22 mmol/L (22-29); Chloride 107 mmol/L (98-107); Estimated GFR 109; Globulin 2.7 g/dL (2.4-3.5); Glucose 185 mg/dL (70-105); Potassium 3.1 mmol/L (3.5-5.1); Protein, Total 5.9 g/dL (6.0-8.3); Sodium 139 mmol/L (136-145)
[2023-01-30 05:37] LABS: Lymphocytes 10 % (21-51); MDiff Complete? YES; Monocytes 8 % (0-10); Neutrophil 77 % (42-75); Platelet Morphology Comment Appears Decreased; RBC Morphology Normal; Reactive Lymphocytes 5 % (0-10)
[2023-01-30] MEDS: Mometasone/Formoterol 200/5 60 PUFF INH SCH ×2 (06:52→19:07)
[2023-01-30] MEDS ORDERED: Potassium Chloride 20 MEQ TAB PO SCH (08:00)
[2023-01-30] MEDS: Azithromycin 250 MG TAB PO SCH (09:25)
[2023-01-30] MEDS: Famotidine 20 MG TAB PO SCH ×2 (09:25→20:28)
[2023-01-30] MEDS: HYDROcodone/Acetaminophen 5/325 mg Tablet PO PRN ×2 (09:29→18:46)
[2023-01-30] MEDS: cefTRIAXone\\ROCEPHIN 1 GM in Sodium Chloride 0.9% 100 ML IVPB SCH (09:29)
[2023-01-30] MEDS: Lactated Ringer's 1,000 ML IV SCH (09:30)
[2023-01-30] MEDS ORDERED: Hydrocortisone 10 mg Tablet PO SCH ×3 (11:15→17:00)
[2023-01-30 11:52] VITALS: BP 154/124
[2023-01-30] MEDS: Guaifenesin DM 100-10/5 ML UDCUP PO PRN ×2 (14:41→18:46)
[2023-01-30] MEDS ORDERED: Melatonin 3 MG TAB PO PRN (20:19)
[2023-01-31] MEDS: Ipratropium/Albuterol 3 ML NEB NEB SCH ×2 (02:50→06:52)
[2023-01-31 04:20] LABS: #Lymphocytes 2.2 thou/uL (1.20-3.40); #Monocytes 0.5 thou/uL (0.11-0.59); #Neutrophils 5.2 thou/uL (1.40-6.50); %Basophils 0.3 % (0.0-1.0); %Eosinophils 0.2 % (0.0-10.0); %Lymphocytes 27.9 % (21.0-51.0); %Monocytes 5.9 % (0.0-10.0); %Neutrophils 65.7 % (42.0-75.0); Hemoglobin 12.8 g/dL (12.0-16.0); Mean Corpuscular HGB CONC 32.2 g/dL (32.0-36.0); Mean Corpuscular Hemoglobin 30.1 pg (27.0-31.0); Mean Corpuscular Volume 93.7 fl (78.0-98.0); Platelet Count 128 10x3/uL (130-400); RBC Distribution Width 14.4 % (11.5-14.5); Red Blood Cell (RBC) Count 4.25 mill/uL (4.20-5.40); White Blood Cell (WBC) Count 7.9 10x3/uL (4.8-10.8)
[2023-01-31 04:43] LABS: ALT (SGPT) 19 U/L (8-55); AST (SGOT) 20 U/L (5-34); Alkaline Phosphatase 79 U/L (40-110); Anion Gap 15 mmol/L (10-20); BUN (Urea Nitrogen) 12 mg/dL (7.0-18.7); Bilirubin, Total 0.2 mg/dL (0.2-1.2); Calc. Creatinine Clearance 136 mL/min (70-130); Calcium 8.3 mg/dL (7.8-10.44); Carbon Dioxide 20 mmol/L (22-29); Chloride 112 mmol/L (98-107); Estimated GFR 110; Globulin 2.6 g/dL (2.4-3.5); Glucose 117 mg/dL (70-105); Potassium 3.1 mmol/L (3.5-5.1); Protein, Total 5.6 g/dL (6.0-8.3); Sodium 144 mmol/L (136-145)
[2023-01-31] MEDS: Mometasone/Formoterol 200/5 60 PUFF INH SCH (06:53)
[2023-01-31] MEDS ORDERED: Potassium Chloride 20 MEQ TAB PO SCH (07:00)
[2023-01-31] MEDS ORDERED: predniSONE 20 MG TAB PO SCH ×2 (08:00)
[2023-01-31] MEDS ORDERED: Hydrocortisone 10 mg Tablet PO SCH (09:00)
[2023-01-31] MEDS: cefTRIAXone\\ROCEPHIN 1 GM in Sodium Chloride 0.9% 100 ML IVPB SCH (09:30)
[2023-01-31] MEDS: Azithromycin 250 MG TAB PO SCH (09:36)
[2023-01-31] MEDS: HYDROcodone/Acetaminophen 5/325 mg Tablet PO PRN (09:36)
[2023-01-31] MEDS: Famotidine 20 MG TAB PO SCH (09:38)
[2023-01-31] MEDS: Guaifenesin DM 100-10/5 ML UDCUP PO PRN (09:39)
[2023-01-31] MEDS ORDERED: Ipratropium/Albuterol 3 ML NEB NEB SCH (13:00)
[2023-01-31 13:52] VITALS: TEMP 97.7
[2023-02-01] MEDS ORDERED: FLU VACC QS2022-23(6MOS UP)/PF 60 MCG/0.5 ML SYRINGE IM ONE (20:15)
== END 2023-01-31 16:43 | disposition home or self-care (01) | DRG 193 ==
LOC: ERS 10:48 → IMCU/EMU 16:20
PROVIDERS: ADMIT Student in an Organized Health Care Education/Training Program; ATTEND Student in an Organized Health Care Education/Training Program
DX: J12.3 Human metapneumovirus pneumonia (principal); J96.01 Acute respiratory failure with hypoxia; E27.1 Primary adrenocortical insufficiency; J44.1 Chronic obstructive pulmonary disease with (acute) exacerbation; J44.0 Chronic obstructive pulmonary disease with (acute) lower respiratory infection; Z20.822 Contact with and (suspected) exposure to COVID-19; R94.31 Abnormal electrocardiogram [ECG] [EKG]; E87.6 Hypokalemia; Z88.0 Allergy status to penicillin; Z88.1 Allergy status to other antibiotic agents; Z88.6 Allergy status to analgesic agent; Z79.51 Long term (current) use of inhaled steroids; Z79.899 Other long term (current) drug therapy; Z90.49 Acquired absence of other specified parts of digestive tract; Z98.84 Bariatric surgery status; Z98.1 Arthrodesis status
CPT/HCPCS: 36415; 36416; 71045; 71275; 74177; 80053; 83605; 83735; 83880; 84145; 84484; 85025; 86140; 87040; 87633; 93005; 96365; 96366; 96367; J0456; J0696; J1720; J2765; J3475; J3480; J3490; J7030; J7120; J7512; J7620; Q9967

== ENCOUNTER 2023-05-27 14:31 | Emergency (ER) | payer MEDICARE, MEDICAID ==
[2023-05-27] MEDS ORDERED: Morphine 4 MG/ML VIAL ONE ×2 (14:49→17:54)
[2023-05-27] MEDS ORDERED: Ondansetron PF 4 MG/2 ML Vial ONE (14:49)
[2023-05-27 15:08] LABS: #Eosinphils 0.1 thou/uL (0.0-0.7); #Monocytes 0.4 thou/uL (0.11-0.59); #Neutrophils 4.6 thou/uL (1.40-6.50); %Basophils 0.4 % (0.0-1.0); %Eosinophils 0.8 % (0.0-10.0); %Lymphocytes 40.4 % (21.0-51.0); %Monocytes 4.2 % (0.0-10.0); Hemoglobin 15.6 g/dL (12.0-16.0); Mean Corpuscular HGB CONC 34.7 g/dL (32.0-36.0); Mean Corpuscular Hemoglobin 32.2 pg (27.0-31.0); Mean Corpuscular Volume 92.8 fl (78.0-98.0); Platelet Count 206 10x3/uL (130-400); RBC Distribution Width 12.3 % (11.5-14.5); Red Blood Cell (RBC) Count 4.84 mill/uL (4.20-5.40); White Blood Cell (WBC) Count 8.5 10x3/uL (4.8-10.8)
[2023-05-27 15:39] LABS: ALT (SGPT) 17 U/L (8-55); AST (SGOT) 22 U/L (5-34); Albumin 4.2 g/dL (3.5-5.0); Alkaline Phosphatase 83 U/L (40-110); Anion Gap 16 mmol/L (10-20); BUN (Urea Nitrogen) 14 mg/dL (7.0-18.7); Bilirubin, Total 0.5 mg/dL (0.2-1.2); Calc. Creatinine Clearance 0 mL/min (70-130); Calcium 9.8 mg/dL (7.8-10.44); Carbon Dioxide 26 mmol/L (22-29); Chloride 104 mmol/L (98-107); Estimated GFR 94; Globulin 2.6 g/dL (2.4-3.5); Glucose 116 mg/dL (70-105); Potassium 2.8 mmol/L (3.5-5.1); Protein, Total 6.8 g/dL (6.0-8.3); Sodium 143 mmol/L (136-145)
[2023-05-27] MEDS ORDERED: Dexamethasone 10 MG/ML VIAL ONE (16:42)
[2023-05-27] MEDS ORDERED: Potassium Chloride 20 MEQ TAB ONE (16:42)
[2023-05-27 17:10] LABS: Magnesium 2.5 mg/dL (1.6-2.6)
[2023-05-27 17:12] LABS: Bacteria/HPF 1+ HPF (None Seen); Bilirubin Negative (Negative); Blood, Urine Negative (Negative); CAUTI Indications for Culture Dysuria,urgency,freq; Clarity Turbid (Clear); Glucose, Urine (Dipstick) Normal (Negative); Ketone, Urine Negative (Negative); Leukocyte Negative Leu/uL (Negative); Nitrite Negative (Negative); Protein, Urine (Dipstick) Negative (Neg-Trace); RBC/HPF 0-3 HPF (0-3); Specific Gravity, Urine 1.013 (1.002-1.036); Urobilinogen Normal mg/dL (Less than 2); WBC/HPF 0-3 HPF (0-3)
[2023-05-27 17:14] LABS: Urine Culture Reflex No No
== END 2023-05-27 17:52 | disposition home or self-care (01) ==
LOC: ERS 14:31
DX: M51.26 Other intervertebral disc displacement, lumbar region (principal); R82.71 Bacteriuria; E11.9 Type 2 diabetes mellitus without complications
CPT/HCPCS: 36415; 72131; 80053; 81001; 83735; 85025; 93005; 96361; 96374; 96375; 96376; J1100; J2270; J2405

== ENCOUNTER 2023-06-11 07:43 | Outpatient (CLI) | payer MEDICARE, MEDICAID | END 2023-06-11 07:44 | disposition home or self-care (01) | LOC: RAD 07:43 | PROVIDERS: ATTEND Physician Assistant Medical | DX: K59.09 Other constipation (principal); R11.2 Nausea with vomiting, unspecified; R63.4 Abnormal weight loss; K22.89 Other specified disease of esophagus; Z98.84 Bariatric surgery status | CPT/HCPCS: 74220 ==

== ENCOUNTER → 2023-07-02 | Day surgery (SDC) | payer OTHER, MEDICAID | LOC: ENDO/OP 13:49 | PROVIDERS: ATTEND Surgery | DX: E66.01 Morbid (severe) obesity due to excess calories (principal); Z68.35 Body mass index [BMI] 35.0-35.9, adult; Z98.84 Bariatric surgery status; Z90.49 Acquired absence of other specified parts of digestive tract; Z87.891 Personal history of nicotine dependence; Z88.1 Allergy status to other antibiotic agents; Z88.8 Allergy status to other drugs, medicaments and biological substances; Z88.0 Allergy status to penicillin; Z88.6 Allergy status to analgesic agent; Z90.710 Acquired absence of both cervix and uterus | CPT/HCPCS: 91010 ==

== ENCOUNTER 2023-07-18 06:32 | Day surgery (SDC) | payer OTHER, MEDICAID ==
[2023-07-17 09:24] VITALS: BMI 23.6
[2023-07-18] MEDS ORDERED: Ketamine 50 MG/ML (10ML VIAL) ONE (07:27)
[2023-07-18] MEDS ORDERED: Fleet Saline Enema 133 ML BOT PR SCH (08:00)
[2023-07-18] MEDS ORDERED: Midazolam HCl 2 mg/2 ml Vial ONE (08:16)
[2023-07-18] MEDS ORDERED: PROPOFOL 200 MG/20 ML VIAL ONE (08:33)
[2023-07-18] MEDS ORDERED: Glycopyrrolate 0.2 MG/ML 5 ML SYRINGE ONE (08:33)
== END 2023-07-18 11:45 | disposition home or self-care (01) ==
LOC: SDC 06:32
PROVIDERS: ATTEND Internal Medicine Gastroenterology
PROC: 0D758ZZ Dilation of Esophagus, Via Natural or Artificial Opening Endoscopic (ICD-10-PCS; principal; 2023-07-18)
PROC: 0DJD8ZZ Inspection of Lower Intestinal Tract, Via Natural or Artificial Opening Endoscopic (ICD-10-PCS; 2023-07-18)
DX: R11.2 Nausea with vomiting, unspecified (principal); K59.09 Other constipation; R63.4 Abnormal weight loss; Z98.84 Bariatric surgery status; K59.00 Constipation, unspecified; K22.0 Achalasia of cardia; D64.9 Anemia, unspecified; F41.9 Anxiety disorder, unspecified; J45.909 Unspecified asthma, uncomplicated; J44.9 Chronic obstructive pulmonary disease, unspecified; F32.A Depression, unspecified; E27.1 Primary adrenocortical insufficiency; K76.0 Fatty (change of) liver, not elsewhere classified; Z90.710 Acquired absence of both cervix and uterus; Z87.59 Personal history of other complications of pregnancy, childbirth and the puerperium; Z98.51 Tubal ligation status; Z79.899 Other long term (current) drug therapy; Z90.3 Acquired absence of stomach [part of]; F17.210 Nicotine dependence, cigarettes, uncomplicated; Z68.24 Body mass index [BMI] 24.0-24.9, adult; Z98.1 Arthrodesis status
CPT/HCPCS: 43249; G0121; J2250

== ENCOUNTER 2024-01-27 17:24 | Emergency (ER) | payer OTHER, MEDICAID ==
[~2024-01-27 17:24] MED LIST changes: -Iopamidol-370 76% 500 ML 1 ML ONE; +Magnevist 469MG/ML 20 ML VIAL ONE
[2024-01-27 18:11] LABS: #Basophils 0.1 thou/uL (0.0-0.2); #Eosinphils 0.1 thou/uL (0.0-0.7); #Monocytes 0.5 thou/uL (0.11-0.59); #Neutrophils 6.2 thou/uL (1.40-6.50); %Basophils 0.7 % (0.0-1.0); %Eosinophils 1.3 % (0.0-10.0); %Lymphocytes 25.4 % (21.0-51.0); %Monocytes 4.9 % (0.0-10.0); %Neutrophils 67.4 % (42.0-75.0); Hematocrit 50.1 % (36.0-47.0); Mean Corpuscular HGB CONC 33.9 g/dL (32.0-36.0); Mean Corpuscular Hemoglobin 30.4 pg (27.0-31.0); Mean Corpuscular Volume 89.6 fl (78.0-98.0); Mean Platelet Volume 9.6 fL (7.4-10.4); Platelet Count 221 10x3/uL (130-400); RBC Distribution Width 11.9 % (11.5-14.5); Red Blood Cell (RBC) Count 5.59 mill/uL (4.20-5.40); White Blood Cell (WBC) Count 9.2 10x3/uL (4.8-10.8)
[2024-01-27 18:25] LABS: INR-International Normal Ratio 0.9; PTT 27.6 sec (22.9-36.1); Prothrombin Time 12.6 sec (12.0-14.7)
[2024-01-27 18:30] LABS: ALT (SGPT) 15 U/L (8-55); AST (SGOT) 19 U/L (5-34); Albumin 4.7 g/dL (3.5-5.0); Alkaline Phosphatase 152 U/L (40-110); Anion Gap 15 mmol/L (10-20); BUN (Urea Nitrogen) 17 mg/dL (9.8-20.1); Bilirubin, Total 0.5 mg/dL (0.2-1.2); Calc. Creatinine Clearance 0 mL/min (70-130); Calcium 9.5 mg/dL (7.8-10.44); Carbon Dioxide 21 mmol/L (22-29); Chloride 109 mmol/L (98-107); Estimated GFR 83; Globulin 2.8 g/dL (2.4-3.5); Glucose 110 mg/dL (70-105); Potassium 3.4 mmol/L (3.5-5.1); Protein, Total 7.5 g/dL (6.0-8.3); Sodium 142 mmol/L (136-145)
[2024-01-27] MEDS ORDERED: Ondansetron PF 4 MG/2 ML Vial ONE (19:12)
[2024-01-27] MEDS ORDERED: Morphine 4 MG/ML VIAL ONE ×2 (19:12→20:51)
[2024-01-27] MEDS ORDERED: LORazepam 2 MG/ML SYR.(CARPUJECT) ONE (19:13)
[2024-01-27 22:38] LABS: Lactic Acid 0.7 mmol/L (0.5-2.2)
[2024-01-27 23:31] LABS: Bacteria/HPF None Seen HPF (None Seen); Bilirubin Negative (Negative); Blood, Urine Negative (Negative); CAUTI Indications for Culture Spinal Cord Injury; Clarity Clear (Clear); Glucose, Urine (Dipstick) Normal (Negative); Ketone, Urine Negative (Negative); Leukocyte Negative Leu/uL (Negative); Nitrite Negative (Negative); Protein, Urine (Dipstick) 10 mg/dL (Neg-Trace); RBC/HPF 0-3 HPF (0-3); Specific Gravity, Urine 1.041 (1.002-1.036); Squamous Epithelial 0-3 HPF (0-3); Urobilinogen Normal mg/dL (Less than 2); WBC/HPF 0-3 HPF (0-3); pH, Urine 5.5 (5.0-9.0)
[2024-01-27 23:43] LABS: Urine Culture Reflex No No
[2024-01-28] MEDS ORDERED: Morphine 4 MG/ML VIAL ONE (00:07)
== END 2024-01-28 00:25 | disposition home or self-care (01) ==
LOC: ERS 17:24
DX: R29.818 Other symptoms and signs involving the nervous system (principal); R15.9 Full incontinence of feces; G89.18 Other acute postprocedural pain; F17.210 Nicotine dependence, cigarettes, uncomplicated
CPT/HCPCS: 71045; 72156; 72157; 72158; 80053; 81001; 83605; 85025; 85610; 85730; 87040; 93005; 94760; J2060; 36415; 96374; 96375; 96376; A9579; J2270; J2405

== ENCOUNTER 2025-06-23 11:33 | Emergency (ER) | payer OTHER ==
[2025-06-23] MEDS ORDERED: Ondansetron PF 4 MG/2 ML Vial ONE (12:26)
[2025-06-23 12:33] LABS: #Basophils 0.04 10x3/uL (0.0-0.2); #Eosinophils 0.11 10x3/uL (0.0-0.7); #Monocytes 0.42 10x3/uL (0.11-0.59); #Neutrophils 4.24 10x3/uL (1.40-6.50); %Basophils 0.5 % (0.0-1.0); %Eosinophils 1.4 % (0.0-10.0); %Lymphocytes 38.6 % (21.0-51.0); %Monocytes 5.3 % (0.0-10.0); %Neutrophils 53.6 % (42.0-75.0); Hematocrit 44.5 % (36.0-47.0); Hemoglobin 15.0 g/dL (12.0-16.0); Mean Corpuscular Hemoglobin 29.9 pg (27.0-31.0); Mean Corpuscular Volume 88.8 fL (78.0-98.0); Platelet Count 215 10x3/uL (130-400); Red Blood Cell (RBC) Count 5.01 mill/uL (4.20-5.40); White Blood Cell (WBC) Count 7.91 10x3/uL (4.8-10.8)
[2025-06-23 13:04] LABS: ALT (SGPT) 12 U/L (Less than 34); AST (SGOT) 29 U/L (11-34); Albumin 4.0 g/dL (3.1-4.5); Alkaline Phosphatase 91 U/L (40-110); Anion Gap 15 mmol/L (10-20); BUN (Urea Nitrogen) 14 mg/dL (9.8-20.1); Bilirubin, Total 0.3 mg/dL (0.3-1.2); Calc. Creatinine Clearance 0 mL/min (70-130); Calcium 8.7 mg/dL (7.8-10.44); Carbon Dioxide 24 mmol/L (22-29); Chloride 105 mmol/L (98-107); Globulin 2.8 g/dL (2.4-3.5); Glucose 90 mg/dL (70-105); Lipase 56 U/L (8-78); Potassium 3.5 mmol/L (3.5-5.1); Sodium 140 mmol/L (136-145)
[2025-06-23] MEDS ORDERED: HYDROcodone/Acetaminophen 5/325 mg Tablet ONE (14:31)
== END 2025-06-23 15:24 | disposition home or self-care (01) ==
LOC: ERS 11:33
DX: R10.84 Generalized abdominal pain (principal); F17.210 Nicotine dependence, cigarettes, uncomplicated
CPT/HCPCS: 74177; 80053; 83690; 85025; 93005; 96361; 96374; 96375; J2270; J2405